=== PATIENT | male | born 1940 | race Caucasian/White ===

== ENCOUNTER 2018-04-15 16:52 | Inpatient (IN) ==
[2018-04-15 18:07] LABS: BASO# 0.07 X1000 (0.0-0.2); BASO% 1.4 % (0.0-0.8); EOS# 0.34 X1000 (0.0-0.7); EOS% 6.8 % (0.0-10.0); HEMATOCRIT 17.3 % (42.0-52.0); LYMPH# 1.62 X1000 (1.2-3.4); LYMPH% 32.2 % (20.5-51.1); MCH 18.1 PG (27-31); MCV 69.8 FL (81-99); MONO# 0.45 X1000 (0.11-0.59); MONO% 8.9 % (1.7-9.3); MPV 10.2 FL (7.4-10.4); NEUT# 2.55 X1000 (1.4-6.5); NEUT% 50.7 % (42.2-75.2); PLT 286 X1000 (130-400); RBC 2.48 XMIL (4.7-6.1); RDW 17.4 % (11.5-14.5); WBC 5.03 X1000 (4.8-10.8)
[2018-04-15 18:08] LABS: HEMOGLOBIN 4.5 g/dL (14.0-18.0)
[2018-04-15 18:09] LABS: AGAP 9; ALB/GLOB RATIO 1.6; ALBUMIN 3.9 g/dL (3.5-5.0); ALKALINE PHOSPHATASE 95 U/L (32-122); BUN 16 mg/dL (8-22); CALCIUM 8.2 mg/dL (8.8-10.2); CHLORIDE 102 mmol/L (98-107); COSMO 276; CREATININE 1.1 mg/dL (0.7-1.2); ESTIMATED GFR > 60; GLUCOSE 87 mg/dL (70-104); GOT 11 U/L (10-34); GPT 8 U/L (10-44); POTASSIUM 4.5 mmol/L (3.5-5.1); SODIUM 138 mmol/L (136-145); TCO2 27 mmol/L (25-35); TOTAL BILIRUBIN 0.17 mg/dL (0.20-1.00); TOTAL PROTEIN 6.3 g/dL (6.3-8.3)
--- NOTE | 2018-04-15 18:38 | Diag Imaging Result Doc PS360 ---
CHEST-2 VIEWS - 04/15/2018 INDICATION: fluid retention COMPARISON: 11/09/2015 FINDINGS: Stable COPD changes. No infiltrates or edema. No pneumothorax or pleural effusion. Heart size is normal. IMPRESSION: COPD. Electronically signed by Terrell Linton 04/15/2018 6:35 PM
[2018-04-15] MEDS ORDERED: ROCEPHIN 1 GM in NS 50 ML IV ONE (18:50)
[2018-04-15] MEDS ORDERED: PROTONIX IV ONE (18:50)
[2018-04-15] MEDS ORDERED: SODIUM CHLORIDE 0.9% INJ ONE (18:50)
--- NOTE | 2018-04-15 19:06 | PROVIDER DOCUMENTATION ---
This chart was entered by Miles Ramirez Scribe, acting as scribe for Stanislaw Dash MD. HPI-General Adult - General Source: family - History of Present Illness -Gen Adult Nature of Presenting Problems: Pt is a 77 y/o M brought to the ED by his daughter for right leg swelling. She reports pt has dementia, Epilepsy, COPD, Bipolar and emphysema. She is the one who gives the HPI. She noticed his right leg was swollen and warm 5 days ago and called his PCP friday. Pt saw her today and was sent to have a vascular study on lower extremities which the daughter was told was negative. She was sent to the ED for possible CHF. Daughter states she has seen some black stool X2. Once a week ago and then 1 month ago. Location of Pain/Injury: reports: lower extremity (right leg) Pain Radiation: reports: no radiation Quality of Pain: reports: aching Severity: reports: mild Onset/Duration: reports: 5 days ago Timing: reports: still present Context/Activities at Onset: reports: none Modifying Factors: improves with: nothing Associated Symptoms: reports: weakness, trouble walking. denies: cough, dizziness, fever/chills, sinus congestion/drainage, seizure, shortness of breath Similar Symptoms Previously?: No Recently seen or treated by another doctor?: No <Stanislaw Dash - Last Filed: 04/15/18 20:00> <Fay Meza - Last Filed: 04/15/18 20:03> - General Chief Complaint: Edema Stated Complaint: FLUID RETENTION Time Seen by Provider: 04/15/18 18:24 Allergies/Adverse Reactions: Patient Allergies Allergy/AdvReac Type Severity Reaction Status Date / Time Penicillins AdvReac HIVES Verified 04/15/18 19:53 Home Medications: Home Medication List Medication Instructions Recorded Confirmed Last Taken Type Lamotrigine 100 gm MC DAILY #30 powder 10/17/17 Unknown Rx Review of Systems - Adult - REVIEW OF SYSTEMS - ADULT ROS:: ROS per family Constitutional: denies: chills, fever Eyes: reports: no symptoms reported Ears, Nose, Mouth & Throat: reports: no symptoms reported Cardiovascular: reports: edema. denies: chest pain Respiratory: denies: cough, shortness of breath, wheezing Gastrointestinal: denies: abdominal pain, diarrhea, nausea, rectal bleeding, vomiting Genitourinary: denies: dysuria, discharge Musculoskeletal: denies: back pain, neck pain Integumentary: reports: no symptoms reported Neurological: denies: dizziness/vertigo, headache/migraines Psychiatric: reports: no symptoms reported Endocrine: reports: no symptoms reported Hematologic/Lymphatic: reports: no symptoms reported Allergic/Immunologic: reports: no symptoms reported All Other Systems: Reviewed and Negative <Stanislaw Dash - Last Filed: 04/15/18 20:00> Past History - Adult - PAST MEDICAL HISTORY-ADULT Review of Records: reports: Old Records Reviewed, Nursing Assessment Review, Medications Reviewed Cardiovascular: reports: HTN Neurological: reports: dementia Psychiatric: reports: bipolar - IMMUNIZATION STATUS Childhood Immunizations: See Nurse Assessment Flu Vaccine: See Nurse Assessment - SOCIAL HISTORY Smoking: cigarettes, greater than 1 pack/day Substance Use: none/never Living Situation: family <Stanislaw Dash - Last Filed: 04/15/18 20:00> Physical Exam-General - PHYSICAL EXAM-ADULT Initial Vital Signs Reviewed: Yes - CONSTITUTIONAL General Appearance: appears well, alert, no apparent distress - EYES Eyes: PERRL/EOMI, pink conjunctivae - HEAD, EARS, NOSE, MOUTH & THROAT HENMT: moist mucous membranes, normal ENT inspection, pharynx normal - NECK Neck: non-tender, full range of motion, supple - RESPIRATORY Respiratory: lungs clear, normal breath sounds, no pleuratic chest pain, no respiratory distress, no accessory muscle use - CARDIOVASCULAR Cardiovascular: normal peripheral pulses, regular rate, rhythm - GASTROINTESTINAL (ABDOMEN) Abdominal Exam: normal bowel sounds, soft - MUSCULOSKELETAL Back Exam: no CVA tenderness, no vertebral tenderness Extremity: normal range of motion, normal gait, normal inspection, pedal edema ( 2+), tenderness (right calf) - SKIN Integumentary: normal turgor, warm/dry, pallor. negative: normal color - NEUROLOGIC Neurologic: grossly normal, no motor/sensory deficits. negative: aphasia, facial droop - PSYCHIATRIC Psych/Mental Status: normal mood/affect, normal thought content, normal thought process, oriented x 3 <Stanislaw Dash - Last Filed: 04/15/18 20:00> Progress - PLAN OF CARE/RESULTS Progress/Plan/Lab Results: Vital Signs - 8 hr 04/15/18 17:01 Temperature 98.7 F Pulse Rate 74 Respiratory Rate 18 Blood Pressure 147/42 O2 Sat by Pulse Oximetry 100 Laboratory Results - last 24 hr 04/15/18 04/15/18 17:15 17:15 WBC 5.03 RBC 2.48 L Hgb 4.5 L* Hct 17.3 L MCV 69.8 L MCH 18.1 L MCHC 26.0 L RDW Std Deviation 17.4 H Plt Count 286 MPV 10.2 Immature Gran % (Auto) 0.0 Neut % (Auto) 50.7 Lymph % (Auto) 32.2 Ramsey % (Auto) 8.9 Eos % (Auto) 6.8 Baso % (Auto) 1.4 H Immature Gran # (Auto) 0.00 Neut # (Auto) 2.55 Lymph # (Auto) 1.62 Ramsey # (Auto) 0.45 Eos # (Auto) 0.34 Baso # (Auto) 0.07 Sodium 138 Potassium 4.5 Chloride 102 Carbon Dioxide 27 Anion Gap 9 BUN 16 Creatinine 1.1 Estimated GFR/1.73 m2 > 60 BUN/Creatinine Ratio 15 Glucose 87 Calculated Osmolality 276 Calcium 8.2 L Total Bilirubin 0.17 L AST 11 ALT 8 L Alkaline Phosphatase 95 Total Protein 6.3 Albumin 3.9 Globulin 2.4 Albumin/Globulin Ratio 1.6 Orders Category Date Time Status Saline Loc NOW Care 04/15/18 18:12 Active Transfuse .Give-Transfuse Care 04/15/18 18:13 Active CHEST-2 VIEWS [RAD] Stat Exams 04/15/18 17:10 Taken CBC WITH ELECTRONIC DIFF [HEME] Stat Lab 04/15/18 17:15 Completed COMPREHENSIVE METABOLIC PANEL [CHEM] Stat Lab 04/15/18 17:15 Completed MAGNESIUM [CHEM] Stat Lab 04/15/18 18:12 Uncollected PRBC [LRPC (RED CELLS)] [BBK] Stat Lab 04/15/18 18:13 Uncollected PRO B-NATRIURETIC PEPTIDE Stat Lab 04/15/18 17:15 Received PRO B-NATRIURETIC PEPTIDE Stat Lab 04/15/18 18:11 Uncollected PROTIME WITH INR [COAG] Stat Lab 04/15/18 18:11 Uncollected PTT [COAG] Stat Lab 04/15/18 18:11 Uncollected TROPONIN T Stat Lab 04/15/18 18:11 Uncollected TYPE & SCREEN [BBK] Stat Lab 04/15/18 18:12 Uncollected URINALYSIS W/POSS RFLX CULT [URINALYSIS] Stat Lab 04/15/18 18:11 Uncollected Oxygen Device Stat Oth 04/15/18 18:12 Active EKG [EKG] Stat Ther 04/15/18 17:10 Ordered Result Diagrams: 04/15/18 17:15 04/15/18 17:15 - REASSESSMENT Reassessment #1 Time Reassessed: 19:53 Status: unchanged (Reasessement complete by Dr Meza. Rectal exam completed. nontender, no blood noted) - XRAY 1 XRAY Study: Chest Impression: Abnormal ( INDICATION: fluid retention COMPARISON: 11/09/2015 FINDINGS: Stable COPD changes. No infiltrates or edema. No pneumothorax or pleural effusion. Heart size is normal. IMPRESSION: COPD. Electronically signed by Terrell Linton 04/15/2018 6:35 PM) - CONSULTS/PCP/HOSPITALIST Notification #1 *Consult/PCP/Hospitalist*: Hospitalist- Dr South Time Discussed: 19:59 Reason/Comments: Review HPI and Admission Consult Disposition: Admit (accepts) - CHANGE OF SHIFT REPORT (ED Provider) Report Given and Care Transferred to:: Dr Meza Time of Transfer: 19:01 Items Pending: Labs, CT/MRI Results <Stanislaw Dash - Last Filed: 04/15/18 20:00> - PLAN OF CARE/RESULTS Progress/Plan/Lab Results: Vital Signs - 8 hr 04/15/18 17:01 04/15/18 18:33 04/15/18 18:34 Temperature 98.7 F Pulse Rate 74 83 80 Respiratory Rate 18 16 14 Blood Pressure 147/42 167/80 O2 Sat by Pulse Oximetry 100 04/15/18 18:40 04/15/18 18:50 04/15/18 19:00 Temperature Pulse Rate 80 76 80 Respiratory Rate 19 12 16 Blood Pressure O2 Sat by Pulse Oximetry 99 100 98 Laboratory Results - last 24 hr 04/15/18 04/15/18 04/15/18 17:15 17:15 17:15 WBC 5.03 RBC 2.48 L Hgb 4.5 L* Hct 17.3 L MCV 69.8 L MCH 18.1 L MCHC 26.0 L RDW Std Deviation 17.4 H Plt Count 286 MPV 10.2 Immature Gran % (Auto) 0.0 Neut % (Auto) 50.7 Lymph % (Auto) 32.2 Ramsey % (Auto) 8.9 Eos % (Auto) 6.8 Baso % (Auto) 1.4 H Immature Gran # (Auto) 0.00 Neut # (Auto) 2.55 Lymph # (Auto) 1.62 Ramsey # (Auto) 0.45 Eos # (Auto) 0.34 Baso # (Auto) 0.07 PT INR PTT (Actin FS) Sodium 138 Potassium 4.5 Chloride 102 Carbon Dioxide 27 Anion Gap 9 BUN 16 Creatinine 1.1 Estimated GFR/1.73 m2 > 60 BUN/Creatinine Ratio 15 Glucose 87 Calculated Osmolality 276 Calcium 8.2 L Magnesium Total Bilirubin 0.17 L AST 11 ALT 8 L Alkaline Phosphatase 95 Troponin T Ich-R-Soxpoxaksmj Pept 1349 H Total Protein 6.3 Albumin 3.9 Globulin 2.4 Albumin/Globulin Ratio 1.6 Blood Type Blood Type Confirm Antibody Screen Crossmatch 04/15/18 04/15/18 04/15/18 17:15 17:15 17:15 WBC RBC Hgb Hct MCV MCH MCHC RDW Std Deviation Plt Count MPV Immature Gran % (Auto) Neut % (Auto) Lymph % (Auto) Ramsey % (Auto) Eos % (Auto) Baso % (Auto) Immature Gran # (Auto) Neut # (Auto) Lymph # (Auto) Ramsey # (Auto) Eos # (Auto) Baso # (Auto) PT 15.1 INR 1.10 PTT (Actin FS) 35.9 Sodium Potassium Chloride Carbon Dioxide Anion Gap BUN Creatinine Estimated GFR/1.73 m2 BUN/Creatinine Ratio Glucose Calculated Osmolality Calcium Magnesium 2.2 Total Bilirubin AST ALT Alkaline Phosphatase Troponin T < 0.010 Snx-S-Nkyfcnbhnqs Pept Total Protein Albumin Globulin Albumin/Globulin Ratio Blood Type Blood Type Confirm Antibody Screen Crossmatch 04/15/18 04/15/18 17:15 18:45 WBC RBC Hgb Hct MCV MCH MCHC RDW Std Deviation Plt Count MPV Immature Gran % (Auto) Neut % (Auto) Lymph % (Auto) Ramsey % (Auto) Eos % (Auto) Baso % (Auto) Immature Gran # (Auto) Neut # (Auto) Lymph # (Auto) Ramsey # (Auto) Eos # (Auto) Baso # (Auto) PT INR PTT (Actin FS) Sodium Potassium Chloride Carbon Dioxide Anion Gap BUN Creatinine Estimated GFR/1.73 m2 BUN/Creatinine Ratio Glucose Calculated Osmolality Calcium Magnesium Total Bilirubin AST ALT Alkaline Phosphatase Troponin T Wkr-X-Vvbjfbqcctu Pept Total Protein Albumin Globulin Albumin/Globulin Ratio Blood Type B POSITIVE Blood Type Confirm B POSITIVE Antibody Screen NEGATIVE Crossmatch See Detail Orders Category Date Time Status Saline Loc NOW Care 04/15/18 18:12 Active Transfuse .Give-Transfuse Care 04/15/18 18:13 Active CHEST-2 VIEWS [RAD] Stat Exams 04/15/18 17:10 Completed CBC WITH ELECTRONIC DIFF [HEME] Stat Lab 04/15/18 17:15 Completed COMPREHENSIVE METABOLIC PANEL [CHEM] Stat Lab 04/15/18 17:15 Completed FERRITIN Stat Lab 04/15/18 19:47 Ordered Iron [TOTAL IRON] [CHEM] Stat Lab 04/15/18 19:47 Uncollected MAGNESIUM [CHEM] Stat Lab 04/15/18 17:15 Received PRBC [LRPC (RED CELLS)] [BBK] Stat Lab 04/15/18 18:45 Results PRO B-NATRIURETIC PEPTIDE Stat Lab 04/15/18 17:15 Completed PROTIME WITH INR [COAG] Stat Lab 04/15/18 17:15 Completed PTT [COAG] Stat Lab 04/15/18 17:15 Completed TIBC [UIBC W TOTAL IRON] [CHEM] Stat Lab 04/15/18 19:47 Uncollected TROPONIN T Stat Lab 04/15/18 17:15 Received TYPE & SCREEN [BBK] Stat Lab 04/15/18 18:45 Results URINALYSIS W/POSS RFLX CULT [URINALYSIS] Stat Lab 04/15/18 18:11 Uncollected CefTRIAXONE [Rocephin] 1 gm Med 04/15/18 18:50 Discontinued 0.9% Sodium Chloride Inj [Ns] 50 ml IV NOW Pantoprazole [Protonix] Med 04/15/18 18:50 Discontinued 40 mg IV NOW ONE Sodium Chloride 0.9% Med 04/15/18 18:50 Discontinued 10 ml INJ NOW ONE Oxygen Device Stat Oth 04/15/18 18:12 Active EKG [EKG] Stat Ther 04/15/18 17:10 Ordered Result Diagrams: 04/15/18 17:15 04/15/18 17:15 <Fay Meza - Last Filed: 04/15/18 20:03> Departure - Departure Date of Disposition Decision: 04/15/18 Time of Disposition Decision: 20:00 Certified Medical Emergency: Emergent - Critical Care Note This patient required my direct & personal management of CC.: No <Stanislaw Dash - Last Filed: 04/15/18 20:00> <Fay Meza - Last Filed: 04/15/18 20:03> - Departure DIAGNOSIS: Hypochromic anemia, Microcytic hypochromic anemia Disposition: ADMITTED INPATIENT 09 Referrals and Follow-Ups: Rosemary Ly MD [Primary Care Provider] - Attestation - Physician/ ELMER Attestation Patient care was provided by Advanced Practice Provider:: No The physician spent face to face time with patient:: Yes Advanced Practice Provider documentation review:: Supervising physician onsite and consulted in the evaluation and care of this patient. The physician did have a face to face encounter with the patient. <Stanislaw Dash - Last Filed: 04/15/18 20:00> This chart was documented by the indicated scribe, (Miles Ramirez Scribe) and accurately reflects the services I performed and decisions made by me, Stanislaw Dash MD, as attested by the provider's signature.
[2018-04-15 19:43] LABS: INR 1.1; PROTIME 15.1 Seconds (11.0-16.0)
[2018-04-15 19:44] LABS: PTT 35.9 Seconds (22.3-41.8)
[2018-04-15 21:16] LABS: IRON SATURATION 2 %; TIBC 359 ug/dL
[2018-04-15 21:17] LABS: URINE SOURCE CLEAN CATCH
[2018-04-15 21:21] LABS: TOTAL IRON 7 ug/dL (53-167); UNBOUND IRON 352 ug/dL (112-346)
[2018-04-15 21:25] LABS: BILIRUBIN URINE NEGATIVE (NEGATIVE); BLOOD URINE NEGATIVE (NEGATIVE); COLOR YELLOW; GLUCOSE URINE NEGATIVE (NEGATIVE); KETONE URINE NEGATIVE (NEGATIVE); LEUKOCYTES URINE NEGATIVE (NEGATIVE); NITRITE URINE NEGATIVE (NEGATIVE); PROTEIN URINE NEGATIVE (NEGATIVE); SP GRAVITY URINE 1.007; TURBIDITY URINE CLEAR (CLEAR); UROBILINOGEN URINE NORMAL (NORMAL)
[2018-04-15 21:26] LABS: UR EPITHELIAL CELLS <10 /HPF (<10); URINE BACTERIA NEGATIVE /HPF; URINE RBC <10 /HPF (<10); URINE WBC <10 /HPF (<10)
[2018-04-15] MEDS ORDERED: SODIUM CHLORIDE 0.9% INJ SCH (23:30)
[2018-04-15] MEDS ORDERED: ZOFRAN IV PRN (23:42)
[2018-04-15] MEDS ORDERED: NS 1,000 ML IV SCH (23:45)
[2018-04-16 01:14] LABS: HEMATOCRIT 21.7 % (42.0-52.0)
[2018-04-16] MEDS ORDERED: FLU VACCINE IM ONE (02:38)
[2018-04-16 06:45] LABS: BASO# 0.07 X1000 (0.0-0.2); BASO% 1.2 % (0.0-0.8); EOS# 0.36 X1000 (0.0-0.7); EOS% 6.3 % (0.0-10.0); HEMATOCRIT 22.8 % (42.0-52.0); HEMOGLOBIN 6.4 g/dL (14.0-18.0); IMM GRAN# 0.02 X1000 (0.0-0.04); IMM GRAN% 0.4 % (0.0-0.5); LYMPH# 1.28 X1000 (1.2-3.4); LYMPH% 22.5 % (20.5-51.1); MCH 20.5 PG (27-31); MCHC 28.1 g/dL (33-37); MCV 73.1 FL (81-99); MONO# 0.66 X1000 (0.11-0.59); MONO% 11.6 % (1.7-9.3); NEUT# 3.31 X1000 (1.4-6.5); PLT 283 X1000 (130-400); RBC 3.12 XMIL (4.7-6.1); RDW 18.9 % (11.5-14.5)
[2018-04-16 07:11] LABS: AGAP 9; BUN 13 mg/dL (8-22); CALCIUM 8.5 mg/dL (8.8-10.2); CHLORIDE 107 mmol/L (98-107); COSMO 285; ESTIMATED GFR > 60; GLUCOSE 93 mg/dL (70-104); POTASSIUM 4.1 mmol/L (3.5-5.1); SODIUM 143 mmol/L (136-145); TCO2 27 mmol/L (25-35)
[2018-04-16] MEDS: DUONEB (A & A) INH PRN ×2 (07:52→15:36)
--- NOTE | 2018-04-16 08:26 | EKG Report ---
Test Performed on : 04/15/2018 5:02:41 PM Test Reason : fluid retention Blood Pressure : / mmHG Vent. Rate : 074 BPM Atrial Rate : 074 BPM P-R Int : 192 ms QRS Dur : 090 ms QT Int : 380 ms P-R-T Axes : 094 056 057 degrees QTc Int : 421 ms Normal sinus rhythm. Septal infarct , age undetermined Abnormal ECG No previous ECGs available Unconfirmed Result
[2018-04-16] MEDS: LAMICTAL PO SCH ×2 (08:48→17:45)
--- NOTE | 2018-04-16 08:51 | HISTORY AND PHYSICAL ---
PRIMARY CARE PROVIDER: Dr. Ly. CHIEF COMPLAINT: Edema. HISTORY OF PRESENT ILLNESS: Mr. Valdez is a 77-year-old male with a past medical history most notable for hypertension, hyperlipidemia, bipolar disorder, seizures, and dementia. The patient's daughter states that over the past few weeks now that she has noticed her father has had worsening fatigue and weakness. She also reports that he has had worsening unsteady gait. She states that over the weekend, he has had some worsening memory problems and confusion. She reported that approximately a week ago, she did notice some black stool on the toilet. She also reports that her father has been complaining of epigastric pain and quite a bit of indigestion. She has been giving him [id number] antacids. He does take a daily aspirin as well as she states that she will occasionally give him an Aleve for pain. She states that she has given him Aleve approximately 3-4 times over the past two weeks. They ultimately did present to the hospital today when instructed by Dr. Ly. He placed an outpatient order for a right venous Doppler ultrasound. She states that over the weekend, he did have some swelling in her right lower extremity. She states that this extremity was warm to the touch compared to his other leg and did have some erythema noted. She reports that she did put some compression socks on him over the weekend and the swelling did improve, though was still present on Friday. They did have an appointment with Dr. Ly today and there was concern for a possible DVT. He did present to the hospital today and did have a venous Doppler ultrasound performed which was reportedly negative, though due to the swelling and some of the symptoms that she had reported to the senior wind turbine technician, the senior wind turbine technician did contact Dr. Ly and was concerned that he may need to come to the ER for further evaluation. The patient is alert and oriented to person and place, though not time. Most of my history of present illness and past medical history were provided by the patient's daughter who is his full-time caregiver. She denies him having any headache or dizziness. She denies him having any known cough, shortness of breath, or chest pain. As previously mentioned, the patient has been reporting epigastric pain and indigestion, though has not had any nausea, vomiting or diarrhea. Other than the swelling in his right lower extremity, he had no other pain, numbness, tingling, or swelling in other extremities. Upon evaluation in the ER, the patient's laboratory results did reveal that he had a critical hemoglobin of 4.5 and a hematocrit of 17.3. His Hemoccult stool that was obtained was negative. I did perform a chest x-ray which showed findings of COPD changes though no infiltrates or edema and no pneumothorax or pleural effusion noted. The patient's vital signs are within normal limits. Blood pressure is 153/79, heart rate 71, oxygen saturation 98% on room air. The patient at this time will be admitted inpatient for further evaluation of his symptomatic anemia as well as possible GI bleed. REVIEW OF SYSTEMS: Unfortunately, a review of systems is unable to be performed with the patient due to his current mentation. He does have a history of dementia though please see the above HPI for a list of reported symptoms by his daughter who is his full-time caregiver. PAST MEDICAL HISTORY: 1. Hypertension. 2. Bipolar disorder. 3. Seizures. 4. Dementia. 5. Hyperlipidemia. 6. Carotid stenosis. 7. BPH. PAST SURGICAL HISTORY: Shoulder surgery. SOCIAL HISTORY: The patient does smoke 1-1/2 packs of cigarettes per day. There is no known alcohol or illicit drug use. He does require assistance of a cane for ambulation. He is retired from [employer]. He does live with his daughter who is his full-time caregiver. FAMILY HISTORY: Positive for his mother having Alzheimer's disease and hyperlipidemia. His father has a history of heart disease, hypertension, and hyperlipidemia. ALLERGIES: The patient has allergies to penicillin. HOME MEDICATIONS: 1. Aspirin 81 mg p.o. with supper. 2. Benazepril 10 mg 1 tablet p.o. daily. 3. Lamictal 100 mg p.o. at breakfast. 4. Lamictal 200 mg p.o. with supper. 5. [place]-3 fatty acid/fish oil 1000 mg 1 p.o. daily. 6. Sertraline 100 mg p.o. daily. 7. Simvastatin 40 mg p.o. with supper. 8. Flomax 0.4 mg p.o. with supper. 9. Omeprazole 40 mg p.o. daily. 10.Albuterol inhaler p.r.n. as needed. DIAGNOSTIC DATA/LABORATORY RESULTS: White blood cell count 5030, hemoglobin 4.5, hematocrit 17.3, platelet count 286. PT 15.1, INR 1.1, PTT 35.9. Sodium 138, potassium 4.5, chloride 102, serum bicarb 27, BUN 16, creatinine 1.1, glucose 87, calcium 8.2, magnesium 2.2. Liver function tests are within normal limits. Troponin is less than 0.01. ProBNP 1349. Urinalysis obtained via clean catch was negative for protein, glucose, ketones, blood, nitrites, leukocytes, white blood cells or bacteria. EKG performed showed normal sinus rhythm at a rate of 74 with a QTC of 421. Chest x-ray showed stable COPD changes. There were no infiltrates, edema, pneumothorax, or pleural effusion identified. PHYSICAL EXAMINATION: VITAL SIGNS: Temperature 98.2, heart rate 75, respirations 18, blood pressure 144/84, oxygen saturation 96% on room air. GENERAL: Mr. Valdez is a pleasant, 77-year-old elderly male who was resting on the ER stretcher. He is in no acute distress. He was awake and alert though was only oriented to person and place. The patient does have a history of dementia. He was able to recognize his daughter at the bedside. He is able to follow simple commands. HEENT: Head is atraumatic, normocephalic. Pupils are 2 mm bilaterally, were equal, round and reactive to light. Subconjunctivae are pale. Oral mucosa is moist. Oropharynx clear. NECK: Supple. Trachea midline. The patient did have bilateral carotid bruits. This was louder on the left compared to the right. He does have a history of carotid stenosis which his daughter states they have been monitoring but does not require intervention at this time. CARDIOVASCULAR: The patient has S1 and S2. No murmurs, gallops or rubs appreciated. Regular rate and rhythm. PULMONARY: The patient has symmetrical chest expansion bilaterally. Lungs sounds were clear to auscultation in bilateral full pelaez. ABDOMEN: Soft. Nondistended. The patient did report some pain and tenderness in the epigastric area. Bowel sounds were present in all four quadrants. EXTREMITIES: No cyanosis noted. The patient did have some swelling noted to his right lower extremity though this is mild. There was no pitting edema. This is from approximately mid calf down. Pulse, motor and sensory were intact in all extremities. Radial pulses and pedal pulses were 2+ bilaterally. Capillary refill is less than 3. There is no increased warmth noted in the right lower extremity though there does appear to be some slight erythema when compared to his left. INTEGUMENTARY: The patient's skin is pink, warm and dry. NEUROLOGIC: The patient is alert and oriented to person and place only. He does have a history of dementia though his daughter states at this time that he is slightly worse than his baseline. He is able to move all extremities. There does not appear to be any focal neurologic deficits. He does have generalized weakness noted. ASSESSMENT AND PLAN: 1. Symptomatic anemia. Further evaluation of this. Anemia profile has been ordered. I have ordered for the patient to be transfused with 2 units of red blood cells. Once this is completed, we will redraw hemoglobin, hematocrit, and transfuse again if necessary. The patient has had reported increased weakness and fatigue. His daughter states he is having a lot more difficulty with ambulation at this time. This is likely secondary to his anemia though if this does not improve after treatment of his anemia, the patient may require physical therapy evaluation. We have placed a consult with Gastroenterology and will await their evaluation and further recommendations for management. 2. Possible gastrointestinal bleed. The patient has reported epigastric pain and worsening indigestion as well as his daughter did state that he had had some melena. His Hemoccult stool initially obtained in the ER was negative. We have reordered this for recheck. The patient is hemodynamically at this time. We will do continuous cardiac telemetry and frequent vital signs for close monitoring. Will continue with treatment as mentioned above for #1. The patient will have Protonix 40 mg IV q.12 hours. He will be n.p.o. at this time. 3. History of seizures. Will continue his Lamictal. 4. History of bipolar disorder. Will continue his Lamictal. 5. History of dementia. 6. History of hypertension. At this time, the patient's blood pressure is within normal limits and given that he is her for symptomatic anemia and possible gastrointestinal bleed, will hold antihypertensives at this time and only treat if necessary. 7. Deep venous thrombosis prophylaxis will be provided with sequential compression devices. The patient has been placed on the medical floor with telemetry. He will have vital signs q.4 hours and do strict intake and output. We will repeat a CBC and BMP in the morning. Other orders and recommendations pending hospital course, diagnostic studies, and physician evaluation. Dictated by MARIAA Magdaleno for Harry South MD cc: Harry South MD
[2018-04-16] MEDS ORDERED: PROTONIX IV SCH (09:00)
[2018-04-16 12:19] LABS: HEMATOCRIT 24.5 % (42.0-52.0)
[2018-04-16] MEDS ORDERED: DIPRIVAN 1% ONE (12:46)
[2018-04-16] MEDS ORDERED: FERRLECIT 125 MG in NS 100 ML IV ONE (14:39)
--- NOTE | 2018-04-16 15:30 | CONSULTATION ---
DATE OF CONSULTATION: 04/16/2018 REASON FOR CONSULTATION: Severe anemia. HISTORY OF PRESENT ILLNESS: This is a 77-year-old white male who comes in with recent problems of right leg swelling. He had been seen by Dr. Ly. They had done workup for possible DVT, which daughter reports was negative. On evaluation, he was found to be severely anemic and he was admitted for further evaluation. The daughter, who lives with him and is his caregiver, due to his dementia, states onset of symptoms started on Friday. He had some swelling in the right lower extremity that was warm to touch. She had also noted a black stool. She had given him some Aleve several times over the last week. There was no noted bright red blood in the stool. No noted hematuria. She had also noticed some unsteady gait. He had reported shortness of breath and some chest pain, reflux/heartburn. He takes Prilosec 40 mg daily and she had been giving additional [id number] Pepcid. The patient had denied abdominal pain. Daughter denies any reported constipation or diarrhea. He usually has a bowel movement daily. He has had a colonoscopy in the past, per our records, his last colonoscopy was in 2011 that showed colon polyps. PAST MEDICAL HISTORY: Hypertension, bipolar disorder, history of epilepsy, dementia, hyperlipidemia, history of carotid stenosis, BPH. PAST SURGICAL HISTORY: Shoulder surgery. ALLERGIES: Penicillin causing hives. HOME MEDICATIONS: Aspirin 81 mg daily, Aricept 10 mg daily, lamotrigine 200 mg every night and 100 mg daily, Namzaric 28/10 mg, 28 mg with breakfast, fish oil one daily, sertraline 100 mg daily, simvastatin 40 mg every night, Flomax 0.4 mg every night. SOCIAL HISTORY: Positive for tobacco use, one and a half packs of cigarettes daily. Denies alcohol use. He is a . He lives with his daughter. FAMILY HISTORY: Positive for Alzheimer's disease in his mother and hyperlipidemia. Father with heart disease, hypertension, and hyperlipidemia. VITAL SIGNS: Temperature 97.9, pulse 79, respirations 18, blood pressure 154/ 62. PHYSICAL EXAMINATION: General: The patient is awake and in no acute distress. He is able to help with some review of systems, most of the information is obtained from the daughter. HEENT: Normocephalic and atraumatic. Pupils equal, round, and reactive to light. Sclerae are nonicteric. Conjunctivae pale. Respiratory: Lung sounds essentially clear bilaterally. Cardiovascular: Regular rate and rhythm. Abdomen: Soft. Nontender. Positive bowel sounds. Extremities: The patient apparently had some right lower extremity edema, I do not really notice much of that now. He does have some tenderness to touch to the lower extremities, otherwise pedal pulses present bilaterally. Neurological: Cranial nerves II-XII grossly intact. The patient is awake and alert and oriented. He does have a history of dementia but he is able to assist with some of the questions. LABORATORY DATA: Hematology: WBC 5.70, hemoglobin 6.4, hematocrit 22.8. On admission, his hemoglobin was 4.5, hematocrit 17.3, MCV 73.1, platelets 283. Coagulation: Pro time 15.1, INR 1.10, PTT 35.9. Chemistries: Sodium 143, potassium 4.1, chloride 107, CO2 27, BUN 13, creatinine 1.1, glucose 93, calcium 8.5. Iron 7. TIBC 359. % saturation 2. Ferritin 5. Total bilirubin 0.17. AST 11 and ALT 8. Alkaline phosphatase 95. Urinalysis is negative. IMAGING STUDIES: Chest x-ray shows COPD. ASSESSMENT AND PLAN: 1. Severe anemia. The patient has received three units of packed red blood cells. He has one more unit to receive. 2. Questionable gastrointestinal bleed. The patient has had noted melena plus he has been taking NSAIDs in addition to his 81 mg aspirin. Continue proton pump inhibitor. Monitor for active bleeding and monitor hemoglobin and hematocrit. Transfuse further packed red blood cells as needed. Will plan for an esophagogastroduodenoscopy today and further plans will be made according to findings. 3. Medical problems including history of seizures, bipolar disorder, dementia, hypertension, and hyperlipidemia. Continue other medications. I have discussed the EGD procedure along with benefits and risks with the patient and his daughter. I have discussed this case with Dr. Cole and further plans will be made as needed. Thank you for this consultation. Dictated by MARIAA Stauffer for Pee Cole MD cc: MARIAA Padilla MD [facility]
--- NOTE | 2018-04-16 15:34 | PROGRESS NOTE ---
DATE: 04/16/2018 INTERVAL HISTORY: The patient with no clear signs or symptoms of active bleeding. Some improvement in hemoglobin and hematocrit with transfusion of 3 units but remains fairly low. Transfusing an additional unit. Given heavy NSAID use prior to admission and melenic stools prior to admission, suspect upper GI bleed. GI evaluation for likely endoscopy pending. Reports fatigue and weakness somewhat improved with transfusion. No new complaints. No other acute events overnight. REVIEW OF SYSTEM: The 12-point review of systems negative except as per interval history. LABORATORY DATA: Initial hemoglobin 4.5. Repeat hemoglobin 6. Most recent hemoglobin 7. Basic metabolic panel unremarkable. Urinalysis unremarkable. The proBNP 1349, iron 7 , TIBC 359, percent saturation 100%, iron saturation 2, ferritin 5. OBJECTIVE: Vital Signs: T-max 98.3 degrees, pulse 75, respirations 18, blood pressure 161/68, O2 saturation 100% on room air. General: No acute distress. HEENT: Normocephalic, atraumatic. Moist mucous membranes. No cervical adenopathy. Some pallor noted. Cardiovascular: Regular rate and rhythm. No murmurs, rubs, or gallops. Pulmonary: Clear to auscultation bilaterally. No wheezing, rales, or rhonchi noted. Abdomen: Soft, nondistended. Minimal epigastric tenderness. Bowel sounds positive. Extremities: Peripheral pulses intact. No clubbing or cyanosis. Trace right lower extremity edema to the mid chapa. Neurologic: Cranial nerves 2-12 grossly intact. No focal deficits noted. Psychiatric: Oriented to person, place but not time, which is essentially baseline. Normal mood and affect. Skin: Some pallor noted as above. No new rashes or lesions identified. ASSESSMENT AND PLAN: 1. Likely zckcz-[id number] blood-loss anemia from gastrointestinal bleed: Patient with profound anemia on admission with hemoglobin of 4.5. Transfused 3 units with improvement to 6.4. Transfused an additional unit. Most recent recheck 7. Given melenotic stools prior to admission, suspect upper GI bleed. GI consultation and recommendations pending. The patient on PPI. Continue to monitor blood counts and transfuse further as needed. The patient quite iron deficient, so we will start IV iron. 2. Seizure disorder. Continue on Lamictal. 3. History of bipolar disorder. Continue home medications. 4. Dementia, moderate. Cooperative and conversation largely appropriate. 5. Hypertension. Some moderate elevations in blood pressure intermittently, but given mild hypotension on admission and possible bleeding, we will hold on restarting home blood pressure medications for now. 6. Deep vein thrombosis prophylaxis with SCDs. 7. Elevated B-type natriuretic peptide. No previous history of heart failure noted. No clear signs of volume overload aside from trace edema of the right lower leg. We will obtain echo to further evaluate. [facility]
--- NOTE | 2018-04-16 16:04 | OPERATIVE NOTE ---
PROCEDURE DATE: 04/16/2018 PROCEDURE: Esophagogastroduodenoscopy. PREOPERATIVE DIAGNOSES: 1. Gastrointestinal bleed. 2. Anemia. POSTOPERATIVE DIAGNOSIS: Diverticulosis second portion of the duodenum. Otherwise, normal esophagogastroduodenoscopy. HISTORY: This is 77-year-old white male admitted to hospital with symptomatic anemia. His hemoglobin and hematocrit were 4.5 and 17.3. EGD was done for diagnostic, as well as therapeutic purposes. DESCRIPTION OF PROCEDURE: Informed consent obtained from the patient's daughter. Procedure, risks, benefits, alternatives were explained in layman's terms. She understood and agreed to proceed. Patient was brought to the endoscopy unit and was premedicated as per Anesthesia. After adequate sedation was achieved, he was lying in the left lateral position. The gastroscope was introduced into the posterior pharynx and advanced under direct vision into the esophagus. Esophagus in its entire length appeared to be normal. No esophagitis, webs, rings, varices were seen. The scope was passed through the esophagus into the stomach. Stomach was examined in both the straight and retroflexed view, which revealed normal cardia, fundus, body, and antrum. The scope was passed through the normal pylorus, into the duodenal bulb, which was normal. Then it was advanced to the second portion of the duodenum which showed a large wide-mouth diverticula on the medial aspect of the duodenum. No evidence of active bleeding or stigmata of recent bleed seen there. I was able to advance the scope into the distal portion of the second portion of duodenum, which did not show any pathology either. The scope was then removed. Patient tolerated the procedure well. No complications noted. Patient was then transferred to the recovery area in a stable condition. IMPRESSION: Anemia with normal esophagogastroduodenoscopy, except for duodenal diverticula. RECOMMENDATION: The patient has received transfusion, and his hemoglobin and hematocrit have improved. I would follow him up at the office and see if he can maintain his hemoglobin and hematocrit on iron oral supplements, and discuss possibility of colonoscopy or small bowel follow- through if needed if he shows further drop in his hemoglobin and hematocrit requiring blood transfusions. I have discussed the findings and plan with the patient's daughter on the telephone. She understands and agrees. cc: MD Rosemary Gutierrez MD
[2018-04-16 21:11] LABS: HEMOGLOBIN 7.4 g/dL (14.0-18.0)
[2018-04-17] MEDS: PRILOSEC PO SCH (06:51)
[2018-04-17] MEDS: LAMICTAL PO SCH ×2 (09:29→17:36)
[2018-04-17] MEDS: DUONEB (A & A) INH PRN ×3 (09:51→20:00)
[2018-04-17 10:29] LABS: HEMATOCRIT 25.7 % (42.0-52.0); HEMOGLOBIN 7.4 g/dL (14.0-18.0)
--- NOTE | 2018-04-17 13:15 | PROGRESS NOTE ---
DATE: 04/17/2018 SUBJECTIVE: The patient was lying in bed in no acute distress. Family was at the bedside. The patient had an EGD on 04/16/2018. Indications for anemia. Findings showed normal EGD except for duodenal diverticula. The patient has not had any active GI bleeding. His hemoglobin and hematocrit today are 7.4, and 25.7. The patient has received a total of 4 units of packed red blood cells since admission. OBJECTIVE: Vital Signs: Temperature 97.8 degrees, pulse 86, respirations 17, blood pressure 125/55. General: The patient is awake and alert, in no acute distress. DIAGNOSTIC DATA: Hemoglobin 7.4, hematocrit 25.7. ASSESSMENT AND PLAN: 1. Anemia, with essentially normal EGD except for duodenal diverticula. Continue PPI. Continue iron. We will plan for a colonoscopy on Friday. 2. Other medical problems including bipolar disorder, dementia, hypertension, history of seizure disorder. Continue current medications. 3. We will plan for colonoscopy on Friday. I have discussed the procedure along with benefits and risks with the patient and family who wish to proceed. We will use a low-dose colon prep. Due to patient's dementia, I do not believe he would tolerate drinking the whole gallon prep. Further plans will be made according to findings. Continue to follow for any further active bleeding, monitor hemoglobin and hematocrit, and transfuse further packed red blood cells as needed. I have discussed this case with Dr. Cole. Dictated by MARIAA Stauffer for Pee Cole MD cc: MARIAA Padilla MD
--- NOTE | 2018-04-17 13:50 | PROGRESS NOTE ---
DATE: 04/17/2018 SUBJECTIVE: The patient is resting in bed. Family present in the room. OBJECTIVE: Vital signs: Temperature 97.8 degrees, pulse 86, respiratory rate 17, blood pressure is 125/55, oxygenation is 100%. HEENT: Atraumatic, normocephalic. Cardiovascular: S1, S2. Respiratory system: Good air entry bilaterally. Abdomen: Soft, nontender. No masses felt. Extremities: No evidence of significant edema. Central nervous system: The patient is lethargic. No obvious focal deficits noted. LABS: Hematocrit is 25.7, with a hemoglobin of 7.4. Blood sugar is 83. EGD done on 04/16/2018 showed normal EGD except for duodenal diverticula. ASSESSMENT AND PLAN: 1. Profound anemia, query etiology. Suspect GI bleed. EGD not very revealing. We will recommend proceeding with lower GI endoscopic studies. In the meanwhile we will continue to follow up on the patient's hemoglobin and hematocrit. Transfuse packed red blood cells as needed. 2. Seizure disorder. Continue Lamictal. Place the patient on seizure precaution. 3. Dementia. Continue Namenda as well as Aricept. 4. History of bipolar disorder. Continue appropriate psych med. 5. Hypertension. Controlled. The patient currently is not on any antihypertensive medications. 6. Deep vein thrombosis prophylaxis. SCDs. cc: Yusuf Patel MD
[2018-04-17] MEDS: ICAR-C PO SCH (13:53)
[2018-04-17] MEDS ORDERED: NS 250 ML ONE (14:19)
--- NOTE | 2018-04-17 15:49 | ECHO REPORT ---
ORDER DATE: 04/16/2018 SUMMARY: 1. Limited study consisting of apical views only. There were no adequate parasternal or subcostal views. Available apical views are technically difficult for interpretation. Intravenous echo contrast agent, Definity, was utilized to enhance endocardial definition. 2. Aortic mitral and tricuspid valves are without gross structural abnormality. Pulmonic valve not seen. Peak gradient across the aortic valve is approximately 10 mmHg. Aortic root is not well demonstrated. 3. Grossly normal left ventricular dimensions suggested. Estimated left ejection fraction appears to be at least 60%. No obvious wall motion abnormality can be appreciated. Left atrium, right atrium, right ventricle grossly normal size. 4. No pericardial effusion. 5. Inferior vena cava not well demonstrated. cc: Ranjeet Villalpando MD
[2018-04-18] MEDS: PRILOSEC PO SCH (06:37)
[2018-04-18] MEDS ORDERED: ARICEPT PO SCH (08:00)
[2018-04-18] MEDS: ICAR-C PO SCH (09:37)
[2018-04-18] MEDS: LAMICTAL PO SCH ×2 (09:37→17:29)
[2018-04-18] MEDS: ARICEPT PO SCH (09:37)
[2018-04-18] MEDS: NAMENDA XR PO SCH (09:37)
[2018-04-18 10:49] LABS: BASO# 0.04 X1000 (0.0-0.2); BASO% 0.5 % (0.0-0.8); HEMATOCRIT 30.4 % (42.0-52.0); HEMOGLOBIN 9.1 g/dL (14.0-18.0); LYMPH# 1.06 X1000 (1.2-3.4); LYMPH% 14.1 % (20.5-51.1); MCH 22.8 PG (27-31); MCHC 29.9 g/dL (33-37); MCV 76.2 FL (81-99); MONO# 0.78 X1000 (0.11-0.59); MONO% 10.4 % (1.7-9.3); MPV 10.7 FL (7.4-10.4); NEUT# 5.35 X1000 (1.4-6.5); PLT 256 X1000 (130-400); RBC 3.99 XMIL (4.7-6.1); RDW 21.9 % (11.5-14.5); WBC 7.53 X1000 (4.8-10.8)
--- NOTE | 2018-04-18 12:22 | PROGRESS NOTE ---
DATE: 04/18/2018 INTERVAL HISTORY: The patient had no further clear signs of active bleeding. Continues to have waxing and waning mental status, but overall some improvement from admission. No new complaints. No acute events overnight. REVIEW OF SYSTEMS: A 12 point review of systems is negative except as per interval history. LABS: WBC 7.5, hemoglobin 9.1, hematocrit 30.4, platelets 256,000. Glucose 95. PHYSICAL EXAMINATION: Vitals: T-max 99.3 degrees, pulse 79, respirations 14, blood pressure 163/66, O2 saturation 96% on room air. General: No acute distress. HEENT: Normocephalic, atraumatic. Moist mucous membranes. Neck: No cervical adenopathy. Cardiovascular: Regular rate and rhythm. No murmurs, rubs, or gallops. Pulmonary: Clear to auscultation bilaterally. Abdomen: Soft, nontender, nondistended. Bowel sounds positive. Extremities: Peripheral pulses intact. No clubbing, cyanosis or edema. Neurologic: Cranial nerves grossly intact. No focal deficits identified. Psych: Awake, alert, and oriented to person but not place or time. Cooperative. Most responses appropriate. Skin: No new rashes or lesions identified. ASSESSMENT AND PLAN: 1. Likely acute on chronic post hemorrhagic anemia related to GI bleed. Patient with profound anemia on admission with a hemoglobin of 4.5, transfused 4 units initially, has been stable since then. EGD largely unrevealing. GI planning on likely colonoscopy on Friday. Further recommendations pending. Has received IV iron, now on p.o. iron for profound iron deficiency. 2. Seizure disorder. Continue Lamictal. No seizures since admission. 3. Dementia. Cooperative. Conversation largely appropriate, but is at least mildly confused at all times. 4. Hypertension. Blood pressure has been occasionally elevated but largely with reasonable control. Continue to monitor. 5. Deep venous thrombosis prophylaxis. SCDs.
[2018-04-19] MEDS: PRILOSEC PO SCH (06:38)
[2018-04-19] MEDS: LAMICTAL PO SCH ×2 (08:57→16:50)
[2018-04-19] MEDS: ARICEPT PO SCH (08:57)
[2018-04-19] MEDS: NAMENDA XR PO SCH (08:57)
[2018-04-19] MEDS: ICAR-C PO SCH (08:57)
--- NOTE | 2018-04-19 13:11 | PROGRESS NOTE ---
DATE: 04/19/2018 SUBJECTIVE: Patient is resting in bed. Has family present in the room. OBJECTIVE: Vital signs: Temperature 99.1, pulse 74, blood pressure is 116/63, oxygen saturation is 95%. HEENT: Atraumatic, normocephalic. Cardiovascular system: S1, S2. Respiratory system: Has evidence of good air entry bilaterally. Abdomen: Soft, nontender. No masses felt. Extremities: No evidence of significant edema. Central nervous system: No obvious focal deficits noted. LABS: Blood sugar is 152. ASSESSMENT AND PLAN: 1. Profound anemia. Suspect GI bleed. The patient has had upper GI endoscopy with lower GI endoscopy still pending. Will follow up on patient's hemoglobin and hematocrit and transfuse PRBCs as needed. 2. Seizure disorder. Continue Lamictal. Maintain patient on seizure precaution. 3. Dementia. Continue Namenda as well as Aricept. 4. History of bipolar disorder. Continue appropriate psych medication. 5. Hypertension. Initiate antihypertensive medications. 6. Deep vein thrombosis prophylaxis. SCDs. cc: Yusuf Patel MD
[2018-04-19] MEDS ORDERED: GOLYTELY PO ONE (14:00)
[2018-04-19] MEDS: NORVASC PO SCH (16:49)
[2018-04-19] MEDS: SUPREP BOWEL PREP KIT PO SCH (17:10)
[2018-04-20] MEDS: SUPREP BOWEL PREP KIT PO SCH (06:09)
[2018-04-20] MEDS: PRILOSEC PO SCH (06:36)
[2018-04-20 07:22] LABS: FLOW CYTOMETERY SOURCE WHOLE BLOOD; LEUKEMIA LYMPHOMA BY FLOW REFERRED FOR TESTING
[2018-04-20 07:42] LABS: BASO# 0.05 X1000 (0.0-0.2); BASO% 0.8 % (0.0-0.8); EOS# 0.38 X1000 (0.0-0.7); EOS% 6.4 % (0.0-10.0); HEMATOCRIT 29.4 % (42.0-52.0); HEMOGLOBIN 8.7 g/dL (14.0-18.0); MCH 22.7 PG (27-31); MCHC 29.6 g/dL (33-37); MCV 76.8 FL (81-99); MONO# 0.65 X1000 (0.11-0.59); MPV 10.2 FL (7.4-10.4); NEUT# 3.52 X1000 (1.4-6.5); NEUT% 59.8 % (42.2-75.2); PLT 263 X1000 (130-400); RBC 3.83 XMIL (4.7-6.1); RDW 23.9 % (11.5-14.5)
[2018-04-20 07:45] LABS: AGAP 12; ALB/GLOB RATIO 1.4; ALBUMIN 3.3 g/dL (3.5-5.0); ALKALINE PHOSPHATASE 89 U/L (32-122); BUN 14 mg/dL (8-22); CALCIUM 8.6 mg/dL (8.8-10.2); CHLORIDE 104 mmol/L (98-107); COSMO 283; CREATININE 0.9 mg/dL (0.7-1.2); ESTIMATED GFR > 60; GLUCOSE 96 mg/dL (70-104); GOT 12 U/L (10-34); GPT 8 U/L (10-44); POTASSIUM 3.8 mmol/L (3.5-5.1); SODIUM 142 mmol/L (136-145); TCO2 26 mmol/L (25-35); TOTAL BILIRUBIN 0.43 mg/dL (0.20-1.00); TOTAL PROTEIN 5.6 g/dL (6.3-8.3)
[2018-04-20 08:37] VITALS: BP 150/66
[2018-04-20] MEDS: ICAR-C PO SCH (08:55)
[2018-04-20] MEDS: NAMENDA XR PO SCH (08:55)
[2018-04-20] MEDS: LAMICTAL PO SCH (08:55)
[2018-04-20] MEDS: NORVASC PO SCH (08:55)
[2018-04-20] MEDS: ARICEPT PO SCH (08:55)
--- NOTE | 2018-04-20 12:03 | PROGRESS NOTE ---
DATE: 04/20/2018 SUBJECTIVE: Patient is sitting up in the bed in no acute distress. His daughter is at the bedside. The patient had been tentatively scheduled for colonoscopy today, but family decided over the weekend they wanted to postpone that until patient was stronger. They want to wait and follow up with Dr. Cole as an outpatient. Hemoglobin and hematocrit today 8.7, 29.4, MCV 76.8. OBJECTIVE: Generally patient is awake and alert. No acute distress. LABORATORY: Hematology: WBC 5.90, hemoglobin 8.7, hematocrit 29.4, MCV 76.8, platelets 263. Chemistry 142, potassium 3.8, chloride 104, CO2 of 26, BUN 14, creatinine 0.9, glucose 96. ASSESSMENT AND PLAN: 1. Anemia. 2. EGD showed normal EGD except for duodenal diverticulum. Recommend to continue proton pump inhibitor. We will follow with the patient as an outpatient and further plans will be made as needed. He may need colonoscopy for further evaluation. Family wanted to wait until patient was stronger to go through colon prep and sedation. Again, I would recommend him follow up with us as an outpatient. I have given them my business card to call and make an office visit after discharge. I have discussed this case with Dr. Cole. Dictated by MARIAA Stauffer for Pee Cole MD cc: MARIAA Padilla MD
--- NOTE | 2018-04-21 04:23 | DISCHARGE SUMMARY ---
ADMISSION DATE: 04/15/2018 DISCHARGE DATE: 04/20/2018 PRINCIPAL DIAGNOSIS: Anemia secondary to iron deficiency. SECONDARY DIAGNOSES: 1. Seizure disorder. 2. Bipolar disorder. 3. Dementia. 4. Hypertension. 5. Hyperlipidemia. 6. Benign prostatic hypertrophy. 7. History of carotid stenosis. DISCHARGE MEDICATIONS: Include the followin. Amlodipine 5 mg p.o. daily. 2. Icar-C 1 p.o. daily. 3. Omeprazole 20 mg p.o. once a day. 4. Aricept 10 mg p.o. at bedtime. 5. Sertraline 100 mg p.o. daily. 6. Simvastatin 40 mg p.o. daily. 7. Flomax 0.4 mg at bedtime. 8. [place]-3 fatty acid 1 daily. 9. Lamotrigine 100 mg p.o. with supper. CONSULTATIONS DONE DURING THIS HOSPITAL STAY: Dr. Cole of Gastroenterology. Dr. Duran of Hematology Oncology. PROCEDURES DONE DURING THIS HOSPITAL STAY: Echocardiogram done on 03/29/2018. EGD done on 04/16/2018. HOSPITAL COURSE: Mr. Ranjeet Valdez is a 77-year-old male who has a history of hypertension, hyperlipidemia, bipolar disorder, seizure disorder as well as dementia. The patient's daughter states that over the past 2 weeks now the patient has become more fatigued as well as weak. When she presented to the ER she was found to have a hemoglobin of 14.5, a hematocrit of 17.3. Hemoccult was obtained but was negative. He subsequently had upper GI endoscopic studies done by Dr. Cole, and this was a normal study except for duodenal diverticula. The patient's family decided not to proceed with lower GI endoscopic studies. The patient has remained stable and can now be discharged home. He is going to be going home with home health services. PHYSICAL EVALUATION: Vital Signs: Temperature 98.6 degrees, pulse 73, respirations 16, blood pressure 150/66, oxygen pressure is 96%. HEENT: Atraumatic and normocephalic. Cardiovascular: S1, S2. Respiratory system: Has evidence of good air entry bilaterally. Abdomen: Soft, nontender. No masses felt. Extremities: No evidence of edema. Central nervous system: No obvious focal deficits. PLAN: Discharge home today with home health services. The patient will need to follow up with primary care physician as well as a Gastroenterology in the outpatient. I have also requested for the patient to follow up with Hematology as well. cc: Yusuf Patel MD
== END 2018-04-20 12:16 | disposition home health service (06) | DRG 812 ==
LOC: ED 16:52 → EDIPHOLD 21:32 → SUATTDRO 21:32 → 3N 04-16 01:25
PROVIDERS: ATTEND Internal Medicine
CPT/HCPCS: 36430; 71020; 71046; 80048; 80053; 81001; 82270; 82378; 82728; 82948; 83540; 83550; 83735; 83880; 84484; 85014; 85018; 85025; 85610; 85730; 86850; 86900; 86901; 86920; 88184; 88185; 90686; 93005; 93306; 93971; 94640; 94760; 94761; 96374; 96375; 97110; 97162; 99285; A9270; C8924; C8929; C9113; J0696; J2916; J7030; J7050; P9016; Q9957; S0164; XXXXX

== ENCOUNTER 2018-11-14 14:32 | Inpatient (IN) ==
[2018-11-14] MEDS ORDERED: MORPHINE IV ONE ×2 (15:07→17:28)
[2018-11-14 15:13] LABS: URINE SOURCE CLEAN CATCH
--- NOTE | 2018-11-14 15:14 | PROVIDER DOCUMENTATION ---
HPI-Musculoskeletal Pain/Inj - GENERAL Chief Complaint: Fall Stated Complaint: FALL/LT HIP PAIN Time Seen by Provider: 11/14/18 14:51 Source: family - HX OF PRESENT ILLNESS-MUSKULOSKELTAL Nature of Presenting Problem: 78 YO M pmh for dementia presents s/p fall and now having left hip pain. Pt currently lives with his daughter. He was seen attempting to put on his clothes in the hallway where he then fell onto his left side. he was unable to bear weight after the fall. The fall was witnessed by his daughter. He did not hit his head or have LOC. Daughter states she gave him Tylenol PM and an extra s trength tylenol. Pt walks normally without any assistance. Severity in ED: moderate Onset/Duration: 1-3 hours ago Timing: still present Modifying Factors: improves with: analgesics Locality of Occurance: Home Similar Symptoms Previously?: No Recently seen or treated by another doctor?: No - FALL INJURY Location of Pain/Injury: reports: pelvis Pain Radiation: reports: no radiation Reason for Fall: reports: lost balance Symptoms prior to fall:: reports: none - HIP/PELVIS PAIN/INJURY Hip Pain Location: reports: hip (L) Pain Radiation: reports: no radiation Context / Method of Injury: reports: direct blow, fall - LOWER EXTREMITY PAIN/INJURY Lower Extremities Pain: hip: left Context / Method of Injury: reports: fell Associated Symptoms: reports: denies symptoms Review of Systems - Adult - REVIEW OF SYSTEMS - ADULT ROS:: limited per condition Constitutional: denies: chills, fever Eyes: reports: no symptoms reported Ears, Nose, Mouth & Throat: reports: no symptoms reported Cardiovascular: reports: no symptoms reported Respiratory: denies: cough, dyspnea on exertion, shortness of breath, wheezing Gastrointestinal: denies: abdominal pain, diarrhea Genitourinary: reports: incontinence. denies: hematuria, urinary retention Past History - Adult - PAST MEDICAL HISTORY-ADULT Review of Records: reports: Old Records Reviewed, Nursing Assessment Review, Social history reviewed & non-contributory. Major Childhood Illnesses: reports: denies history Cardiovascular: reports: HTN, hyperlipidemia Respiratory: reports: COPD Gastrointestinal: reports: denies history Obstetrical/Gynecological: reports: denies history Genitourinary: reports: denies history Musculoskeletal: reports: denies history Neurological: reports: dementia, Seizures/Epilepsy Psychiatric: reports: bipolar Endocrine/Immune: reports: anemia Other Conditions: reports: denies history - PRIOR SURGERIES/PROCEDURES Surgical/Procedure History: reports: reviewed, not pertinent - IMMUNIZATION STATUS Childhood Immunizations: See Nurse Assessment Flu Vaccine: See Nurse Assessment - FAMILY HISTORY Family History: reviewed, not pertinent - SOCIAL HISTORY Smoking: cigarettes, greater than 1 pack/day Living Situation: family Physical Exam-Injury Related - Physical Exam-Injury Related General Appearance: alert, no apparent distress Eyes: PERRL/EOMI Head, Ears, Nose, Mouth & Throat: normocephalic/atraumatic Neck: non-tender, supple, normal inspection Respiratory: chest non-tender, lungs clear, normal breath sounds, no respiratory distress, no accessory muscle use Cardiovascular: regular rate, rhythm, no edema, no JVD Abdominal Exam: normal bowel sounds, non tender, soft. negative: distended Extremity: normal inspection, no pedal edema, pelvis stable. negative: normal range of motion (decreased passive range of motion, limited by pain. pain with flexion of left leg. neurovascular intact, no ecchymosis noted) Integumentary: normal color, warm/dry Neurologic: grossly normal Psych/Mental Status: normal mood/affect Progress - PLAN OF CARE/RESULTS Progress/Plan/Lab Results: Vital Signs - 8 hr 11/14/18 14:35 Temperature 98.6 F Pulse Rate 66 Respiratory Rate 16 Blood Pressure 132/67 O2 Sat by Pulse Oximetry 97 Laboratory Results - last 24 hr 11/14/18 11/14/18 11/14/18 15:05 15:37 15:37 WBC 10.73 RBC 4.31 L Hgb 14.2 Hct 42.7 MCV 99.1 H MCH 32.9 H MCHC 33.3 RDW Std Deviation 13.2 Plt Count 163 MPV 10.3 Immature Gran % (Auto) 0.3 Neut % (Auto) 78.2 H Lymph % (Auto) 13.1 L Turner % (Auto) 5.5 Eos % (Auto) 2.5 Baso % (Auto) 0.4 Immature Gran # (Auto) 0.03 Neut # (Auto) 8.39 H Lymph # (Auto) 1.41 Turner # (Auto) 0.59 Eos # (Auto) 0.27 Baso # (Auto) 0.04 Sodium 140 Potassium 3.9 Chloride 101 Carbon Dioxide 31 Anion Gap 8 BUN 17 Creatinine 1.3 H Estimated GFR/1.73 m2 53 BUN/Creatinine Ratio 13 Glucose 81 Calculated Osmolality 280 Calcium 9.0 Magnesium 2.1 Total Bilirubin 0.33 AST 20 ALT 24 Alkaline Phosphatase 108 Total Protein 7.0 Albumin 4.5 Globulin 2.5 Albumin/Globulin Ratio 1.8 Urine Source CLEAN CATCH Urine Color YELLOW Urine Turbidity CLEAR Urine pH 6.0 Ur Specific Farson 1.022 Urine Protein 30 A Ur Glucose (Stick) NEGATIVE Ur Ketones (Stick) NEGATIVE Urine Blood NEGATIVE Urine Nitrite NEGATIVE Urine Bilirubin NEGATIVE Urobilinogen Dipstick NORMAL Urine Leukocytes NEGATIVE Urine WBC (Auto) <10 Urine RBC (Auto) <10 U Epithel Cells (Auto) <10 Urine Bacteria (Auto) NEGATIVE Orders Category Date Time Status Nursing- MD Consult Request ROUTINE Care 11/14/18 20:51 Active Repeat Vital Signs .Oxygen Saturation Care 11/14/18 20:47 Active Update & Confirm Home Medicati ROUTINE Care 11/14/18 20:45 Active Physician/Provider Consults Routine Cons 11/15/18 08:[address] ABDOMEN/PELVIS W/O CONTRAST [CT] Stat Exams 11/14/18 15:06 Completed XRAY PELVIS W/HIP 2-3VW LT [RAD] Stat Exams 11/14/18 15:12 Completed CBC WITH ELECTRONIC DIFF [HEME] Stat Lab 11/14/18 15:37 Completed COMPREHENSIVE METABOLIC PANEL [CHEM] Stat Lab 11/14/18 15:37 Completed MAGNESIUM [CHEM] Stat Lab 11/14/18 15:37 Completed TYPE & SCREEN [BBK] Stat Lab 11/14/18 15:37 Results UA [URINALYSIS W/POSS RFLX CULT] [URINALYSIS] Stat Lab 11/14/18 15:05 Completed 0.9% Sodium Chloride Inj [Ns] 1,000 ml Med 11/14/18 16:16 Discontinued IV 999 mls/hr Hydromorphone [Dilaudid] Med 11/14/18 20:18 Discontinued 0.5 mg IV NOW ONE Lorazepam [Ativan] Med 11/14/18 19:06 Discontinued 0.5 mg IV NOW ONE Morphine Med 11/14/18 15:07 Discontinued 4 mg IV NOW ONE Morphine Med 11/14/18 17:28 Discontinued 4 mg IV NOW ONE Transfer/Admit Order [TRANSFER] Routine Transfer 11/14/18 20:51 Ordered Result Diagrams: 11/14/18 15:37 08/31/19 15:37 - REASSESSMENT Reassessment #1 Time Reassessed: 17:25 Status: unchanged (pt states he is still hurting. Labs reviewed. waiting on read for CT. no abnormality seen on plain film. Will give another dose of morhpine. planning for admission.) Reassessment #2 Status: unchanged (hospitalist paged at [phone], no response. Repaged at [phone], no response, will page again. Pt in pain, ativan has not yet been given. Will give ativan and dilaudid. pt ready for admission.) Reassessment #3 Status: improving (pt received pain medication. pain improved. spoke with ortho, will see in AM. pt admitted by hospitalist.) - XRAY 1 XRAY Study: Pelvis, Hip (normal) Impression: Abnormal (left femoral neck fracture), Need Further Study Comparison with other Films: no prior study - CT/MRI 1 CT Study: Abdomen, Pelvis Impression: Abnormal (EXAM: CT ABDOMEN/PELVIS W/O CONTRAST INDICATION: s/p fall, left hip pain TECHNIQUE: This exam was performed using automated exposure control, adjustment of mA or kV according to patient size, and/or use of iterative reconstruction technique. COMPARISON: 06/23/2017 FINDINGS: There is mild subsegmental atelectasis at the lung bases. The liver, gallbladder, spleen, pancreas, and adrenal glands are grossly unremarkable as imaged with unenhanced CT. There is a small nonobstructing intrarenal stone on the left. There is no hydronephrosis. The kidneys are grossly unremarkable, otherwise. The prostate is markedly enlarged but is stable. The urinary bladder is partially distended and is unremarkable, otherwise. There is diverticulosis coli but no evidence of diverticulitis. There is no evidence of bowel obstruction. The remainder of the GI tract is grossly unremarkable as imaged with unenhanced CT. There is extensive aortoiliac atherosclerotic calcification. There is a subcapital fracture of the left femoral neck with mild anterior apex angulation. There is advanced degenerative arthropathy throughout the spine. No other discrete fracture is identified. IMPRESSION: 1.Left femoral neck fracture as described. 2.Other incidental/nonacute findings detailed above. No definite acute intra-abdominal pathology. Electronically signed by Eduar Barber 11/14/2018 5:46 PM), See EMR Report - CONSULTS/PCP/HOSPITALIST Notification #1 *Consult/PCP/Hospitalist*: Dr. South accepts admission. Spoke with Dr. Arroyo for ortho. Time Discussed: 20:30 (accepts admission, ortho will see in morning.) Consult Disposition: Will see in ED Departure - Departure Date of Disposition Decision: 11/14/18 Time of Disposition Decision: 18:06 DIAGNOSIS: Fracture of femoral neck, left, Left hip pain, Creatinine elevation Disposition: ADMITTED INPATIENT 09 Certified Medical Emergency: Emergent Condition: Stable - Critical Care Note This patient required my direct & personal management of CC.: No Attestation - Physician/ ELMER Attestation The physician spent face to face time with patient:: Yes Advanced Practice Provider documentation review:: Supervising physician onsite and consulted in the evaluation and care of this patient. The physician did have a face to face encounter with the patient.
[2018-11-14 15:15] LABS: BILIRUBIN URINE NEGATIVE (NEGATIVE); BLOOD URINE NEGATIVE (NEGATIVE); COLOR YELLOW; GLUCOSE URINE NEGATIVE (NEGATIVE); KETONE URINE NEGATIVE (NEGATIVE); LEUKOCYTES URINE NEGATIVE (NEGATIVE); NITRITE URINE NEGATIVE (NEGATIVE); PROTEIN URINE 30 mg/dL (NEGATIVE); SP GRAVITY URINE 1.022; TURBIDITY URINE CLEAR (CLEAR); UR EPITHELIAL CELLS <10 /HPF (<10); URINE BACTERIA NEGATIVE /HPF; URINE RBC <10 /HPF (<10); URINE WBC <10 /HPF (<10); UROBILINOGEN URINE NORMAL (NORMAL)
[2018-11-14 15:47] LABS: BASO# 0.04 X1000 (0.0-0.2); BASO% 0.4 % (0.0-0.8); EOS# 0.27 X1000 (0.0-0.7); EOS% 2.5 % (0.0-10.0); HEMATOCRIT 42.7 % (42.0-52.0); HEMOGLOBIN 14.2 g/dL (14.0-18.0); IMM GRAN# 0.03 X1000 (0.0-0.04); IMM GRAN% 0.3 % (0.0-0.5); LYMPH# 1.41 X1000 (1.2-3.4); LYMPH% 13.1 % (20.5-51.1); MCH 32.9 PG (27-31); MCHC 33.3 g/dL (33-37); MCV 99.1 FL (81-99); MONO# 0.59 X1000 (0.11-0.59); MONO% 5.5 % (1.7-9.3); MPV 10.3 FL (7.4-10.4); NEUT# 8.39 X1000 (1.4-6.5); NEUT% 78.2 % (42.2-75.2); PLT 163 X1000 (130-400); RBC 4.31 XMIL (4.7-6.1); RDW 13.2 % (11.5-14.5); WBC 10.73 X1000 (4.8-10.8)
[2018-11-14 16:04] LABS: ALB/GLOB RATIO 1.8; ALBUMIN 4.5 g/dL (3.5-5.0); CREATININE 1.3 mg/dL (0.7-1.2); MAGNESIUM 2.1 mg/dL (1.5-2.7); POTASSIUM 3.9 mmol/L (3.5-5.1); TOTAL BILIRUBIN 0.33 mg/dL (0.20-1.00)
[2018-11-14] MEDS ORDERED: NS 1,000 ML IV ONE (16:16)
--- NOTE | 2018-11-14 17:48 | Diag Imaging Result Doc PS360 ---
EXAM: CT ABDOMEN/PELVIS W/O CONTRAST INDICATION: s/p fall, left hip pain TECHNIQUE: This exam was performed using automated exposure control, adjustment of mA or kV according to patient size, and/or use of iterative reconstruction technique. COMPARISON: 06/23/2017 FINDINGS: There is mild subsegmental atelectasis at the lung bases. The liver, gallbladder, spleen, pancreas, and adrenal glands are grossly unremarkable as imaged with unenhanced CT. There is a small nonobstructing intrarenal stone on the left. There is no hydronephrosis. The kidneys are grossly unremarkable, otherwise. The prostate is markedly enlarged but is stable. The urinary bladder is partially distended and is unremarkable, otherwise. There is diverticulosis coli but no evidence of diverticulitis. There is no evidence of bowel obstruction. The remainder of the GI tract is grossly unremarkable as imaged with unenhanced CT. There is extensive aortoiliac atherosclerotic calcification. There is a subcapital fracture of the left femoral neck with mild anterior apex angulation. There is advanced degenerative arthropathy throughout the spine. No other discrete fracture is identified. IMPRESSION: 1.Left femoral neck fracture as described. 2.Other incidental/nonacute findings detailed above. No definite acute intra-abdominal pathology. Electronically signed by Eduar Barber 11/14/2018 5:46 PM
[2018-11-14] MEDS ORDERED: ATIVAN IV ONE (19:06)
--- NOTE | 2018-11-14 19:39 | Diag Imaging Result Doc PS360 ---
EXAM: XRAY PELVIS W/HIP 2-3VW LT INDICATION: s/p fall, now left hip pain TECHNIQUE: 3 views COMPARISON: None. FINDINGS: There is a nondisplaced fracture involving the left femoral neck. There are extensive degenerative changes involving the lower lumbar spine. There is no other discrete fracture, dislocation, or significant intrinsic osseous lesion. The surrounding soft tissues are essentially unremarkable. IMPRESSION: Nondisplaced fracture of the left femoral neck as described. Electronically signed by Eduar Barber 11/14/2018 7:37 PM
[2018-11-14] MEDS ORDERED: DILAUDID IV ONE (20:18)
[2018-11-15] MEDS ORDERED: NS 1,000 ML IV SCH (00:20)
[2018-11-15] MEDS: MORPHINE IV PRN ×2 (00:51→05:32)
[2018-11-15] MEDS: ZOFRAN IV PRN ×2 (00:52→05:32)
[2018-11-15 04:53] LABS: URINE SOURCE CATH
[2018-11-15 05:10] LABS: BILIRUBIN URINE NEGATIVE (NEGATIVE); BLOOD URINE LARGE (NEGATIVE); COLOR BROWN; GLUCOSE URINE NEGATIVE (NEGATIVE); KETONE URINE NEGATIVE (NEGATIVE); LEUKOCYTES URINE SMALL (NEGATIVE); NITRITE URINE NEGATIVE (NEGATIVE); PH URINE 6.5; PROTEIN URINE 50 mg/dL (NEGATIVE); SP GRAVITY URINE 1.015; TURBIDITY URINE TURBID (CLEAR); UR EPITHELIAL CELLS <10 /HPF (<10); URINE BACTERIA NEGATIVE /HPF; URINE RBC TNTC /HPF (<10); UROBILINOGEN URINE NORMAL (NORMAL)
[2018-11-15 05:45] LABS: BASO# 0.05 X1000 (0.0-0.2); BASO% 0.7 % (0.0-0.8); EOS% 4.2 % (0.0-10.0); HEMOGLOBIN 12.9 g/dL (14.0-18.0); LYMPH# 1.19 X1000 (1.2-3.4); LYMPH% 16.8 % (20.5-51.1); MCH 32.7 PG (27-31); MCHC 33.1 g/dL (33-37); MCV 98.7 FL (81-99); MONO# 0.74 X1000 (0.11-0.59); MONO% 10.5 % (1.7-9.3); MPV 10.7 FL (7.4-10.4); NEUT% 67.8 % (42.2-75.2); PLT 143 X1000 (130-400); RBC 3.95 XMIL (4.7-6.1); RDW 12.8 % (11.5-14.5); WBC 7.08 X1000 (4.8-10.8)
[2018-11-15 05:45] LABS: URINE CASTS NONE SEEN; URINE CRYSTALS NONE SEEN; URINE SMALL ROUND CELLS NONE SEEN; URINE YEAST NONE SEEN
[2018-11-15 06:06] LABS: INR 1.13; PROTIME 14.7 Seconds (11.0-16.0)
[2018-11-15 06:07] LABS: PTT 39.8 Seconds (22.3-41.8)
[2018-11-15 06:15] LABS: AGAP 11; BUN 14 mg/dL (8-22); CALCIUM 8.6 mg/dL (8.8-10.2); CHLORIDE 105 mmol/L (98-107); COSMO 285; CREATININE 0.9 mg/dL (0.7-1.2); ESTIMATED GFR > 60; GLUCOSE 98 mg/dL (70-104); POTASSIUM 4.3 mmol/L (3.5-5.1); SODIUM 143 mmol/L (136-145); TCO2 27 mmol/L (25-35)
[2018-11-15] MEDS ORDERED: KEFZOL 1 GM/D5W 1 GM/50 ML IVPB IV ONE (07:20)
--- NOTE | 2018-11-15 07:49 | ORTHOPAEDICS CONSULTATION ---
DATE: 11/15/2018 CHIEF COMPLAINT: Left hip pain. HISTORY OF PRESENT ILLNESS: Ranjeet Valdez is a 78-year-old male who complains of left hip pain after a same-level fall. He apparently fell against the wall. It was witnessed by his daughter. There was no loss of consciousness. He complains of left hip pain and inability to ambulate. PAST MEDICAL HISTORY: Significant for hypertension, hyperlipidemia, COPD, history of dementia, seizures and epilepsy, as well as bipolar disorder, history of anemia. PAST SURGICAL HISTORY: None. SOCIAL HISTORY: Admits to smoking greater than a pack a day. REVIEW OF SYSTEMS: Negative, except as noted above. PHYSICAL EXAMINATION: General: Well-developed, well-nourished male. He is alert, oriented, and cooperative with exam. Extremities: Examination of his left hip reveals pain with any range of motion. His leg is otherwise neurovascularly intact. IMAGING: X-rays show a nondisplaced left femoral neck fracture. IMPRESSION: Nondisplaced left femoral neck fracture. PLAN: I have discussed with the family, treatment options. They requested that we proceed with surgery. I have discussed with him, the risks, benefits, and alternatives of surgery, including but not limited to, bleeding, nerve damage, infection, risk from anesthesia, hardware failure, malunion, nonunion, up to and including loss of limb and life and other imponderables. They voiced understanding. All questions were answered. No guarantees were given. They requested to proceed as planned. Will schedule surgery later today. cc: Kraig Arroyo MD
--- NOTE | 2018-11-15 09:19 | HISTORY AND PHYSICAL ---
CHIEF COMPLAINT: Fall with left hip pain. HISTORY OF PRESENT ILLNESS: This is a 78-year-old male with end stage dementia, who fell at home and came in with having left hip pain. He lives with his daughter. He was unable to bear weight. In the ER, he was found to have a left femoral neck fracture. He will be admitted with consultation for Ortho. PAST MEDICAL HISTORY: Hypertension, bipolar disorder, seizure disorder, dementia, hyperlipidemia, carotid stenosis, BPH. PAST SURGICAL HISTORY: Shoulder surgery. SOCIAL HISTORY: Smokes half a pack of cigarettes to a pack of cigarettes. No alcohol. No illicit drugs. Retired from [employer]. He lives with his daughter who is his full-time caregiver. FAMILY HISTORY: Mother had Alzheimer's and hyperlipidemia. Father had heart disease, hypertension and hyperlipidemia. ALLERGIES: Penicillin. HOME MEDICATIONS: A list of home medications has not been reconciled. An order was placed for the nurse to reconcile home medications in the computer. These will be restarted when appropriate. REVIEW OF SYSTEMS: A 14-point review of systems cannot be conducted related to the patient being disoriented except for to person. PHYSICAL EXAMINATION: VITAL SIGNS: Temperature is 98.2, pulse 69, blood pressure 129/77, oxygen saturation 93% on room air. GENERAL: A pleasantly confused 78-year-old male oriented only to person, lying on the ER stretcher. He does not respond to most questions. Daughter is at bedside and very attentive. HEENT: Head is atraumatic and normocephalic. Pupils are equal, round and reactive to light. Extraocular eyes movements intact. Sclerae anicteric. Conjunctivae are pink. Oral mucosa is dry. NECK: Supple. No JVD. No thyromegaly. Trachea is midline. No cervical lymphadenopathy. CARDIAC: S1 and S2 appreciated. No murmurs, gallops or rubs. LUNGS: Clear to auscultation bilaterally. No rhonchi, wheezes or rales. Symmetric rise and fall with respirations. ABDOMEN: Soft, nondistended and nontender. Bowel sounds present in all 4 quadrants and normoactive. No pulsatile mass. No organomegaly. EXTREMITIES: The patient defers to move left side related to pain. Neurovascular intact. There are 2+ pedal pulses bilaterally. MUSCULOSKELETAL: All extremities other than left lower extremity appeared to have normal range of motion, 4/5 strength. NEUROLOGICAL: Oriented only to person. Cranial nerves II through XII appear to be otherwise grossly intact. DIAGNOSTIC DATA: CT of the abdomen and pelvis shows a left femoral neck fracture. Laboratory data shows WBC of 10.73, hemoglobin 14.2, hematocrit 42.7, platelet count 163. Sodium is 140, potassium 3.9, chloride 101, carbon dioxide 31, BUN is 17, creatinine 1.3, glucose 81. Urine unremarkable. ASSESSMENT AND PLAN: 1. Left femoral neck fracture. Morphine as needed for pain. Consult Ortho. Lincoln traction if recommended by Ortho. 2. Acute kidney injury. Given normal saline. Recheck laboratory data. 3. History of epilepsy where he does not take seizure medication anymore, from what I understand. A list of home medications is being reconciled. These will be restarted with appropriate. 4. End stage dementia, aware. As noted above, we will restart home medications when appropriate. Further recommendations based on the patient's clinical course. Dictated by MARIAA Harrell for Haryr South MD\ I have performed a face to face diagnostic evaluation. Labs/ Xrays- reviewed. Exam- chest - clear, Ext- Left hip tenderness. A/P- Left femoral neck fracture- Admit, pain control. Ortho consult. Dr. South cc: MARIAA Harrell MD Primary [facility] provider [facility]
--- NOTE | 2018-11-15 10:58 | PROGRESS NOTE ---
DATE: 11/15/2018 SUBJECTIVE: This patient is resting in bed. He is complaining of headache. He has advanced dementia. Today he will go to the OR to repair the left femoral neck fracture. Orthopedic surgery on board. I had a large conversation with his daughters, and for now he will be full code. OBJECTIVE: Vital Signs: Temperature 99.2 degrees, pulse 70, respiratory rate 18, blood pressure 134/65, oxygen saturation 96 on nasal cannula. HEENT: Head normocephalic, no trauma. Neck: Supple, no JVD. No masses. Central trachea. Chest: Clear to auscultation. No wheezing. No rales. Abdomen: Soft, nontender, nondistended. No hepatosplenomegaly. Extremities: No edema, no clubbing, no cyanosis. This patient defers to move left side related to pain. I do not see any neurovascular lesion. Neurological: This patient is sleepy. He has advanced dementia. LABORATORY: WBC 7000, hemoglobin 12.9, hematocrit 39, platelets 143,000. Sodium 143, potassium 4.3, chloride 105, bicarbonate 27, BUN 14, creatinine 0.9, glucose 98, calcium 8.6. ASSESSMENT AND PLAN: 1. Left femoral neck fracture. We will continue with same management. Hopefully today he will we go to the operating room to fix the fracture. We will continue to monitor this patient closely. 2. Acute kidney injury, resolved. 3. Advanced dementia, aware. We will continue with home medications when appropriate. He is NPO right now. 4. History of epilepsy, aware. I will restart all his medications when appropriate. 5. History of severe anemia. He has been worked up at the beginning of this year and nothing really was found. He received some iron infusion and the hemoglobin improved. At this moment the hemoglobin is stable at 12.9. We will keep an eye on these since his wean since he will require probably some anticoagulation during this hospitalization and discharge. cc: Jorge Swartz MD
[2018-11-15] MEDS ORDERED: XYLOCAINE-MPF 2% ONE (11:10)
[2018-11-15] MEDS ORDERED: ROBINUL ONE (11:10)
[2018-11-15] MEDS ORDERED: DIPRIVAN 1% ONE (11:10)
[2018-11-15] MEDS ORDERED: ZOFRAN ONE (11:28)
[2018-11-15] MEDS ORDERED: OFIRMEV 1000 MG/ISOTONIC SOLN 1,000 MG/100 ML BOTTLE ONE (11:28)
[2018-11-15] MEDS ORDERED: TORADOL ONE (11:28)
[2018-11-15] MEDS ORDERED: DECADRON ONE (11:28)
[2018-11-15] MEDS ORDERED: MILK OF MAGNESIA PO PRN (13:56)
[2018-11-15] MEDS ORDERED: MORPHINE IV PRN (13:56)
[2018-11-15] MEDS ORDERED: ZOFRAN IV PRN (13:56)
--- NOTE | 2018-11-15 14:38 | OPERATIVE NOTE ---
PROCEDURE DATE: 11/15/2018 PREOPERATIVE DIAGNOSIS: Left subcapital femoral neck fracture, mildly impacted. POSTOPERATIVE DIAGNOSIS: Left subcapital femoral neck fracture, mildly impacted. PROCEDURE: Closed reduction and percutaneous pinning of left subcapital femoral neck fracture with 7.3 cannulated screws. ANESTHESIA: General. SURGEON: Kraig Arroyo MD. COMPLICATIONS: None. BLOOD LOSS: Minimal. DESCRIPTION OF PROCEDURE: Patient brought to the operative suite and placed in the supine position. After successful administration of general anesthesia, patient placed on the OSI table in the usual position for a left hip. The left hip was then prepped and draped in the usual sterile fashion. A longitudinal incision was made overlying the flare of the greater trochanter. This was dissected sharply through the skin and then three 7.3 cannulated screw guide pins were placed in an inverted triangle. Once these were verified to be in good position, they were measured at 100 mm inferiorly and 95 mm for the 2 superior pins. The outer cortex was reamed and the screws were driven into place and the pins removed. Post x-ray showed excellent reduction the fracture and placement of the hardware. The wound was copiously irrigated. Skin edge approximated with 2-0 Vicryl. Skin was closed with skin nat. A sterile dressing applied. The patient tolerated the procedure well without complication. At the end the procedure, all counts were correct x2. The patient was transferred to the recovery room in stable condition. cc: Kraig Arroyo MD
[2018-11-15] MEDS: OXY IR PO PRN (14:45)
[2018-11-15] MEDS: LAMICTAL PO SCH ×2 (14:46→16:28)
[2018-11-15] MEDS: FLOMAX PO SCH (16:28)
[2018-11-15] MEDS: NAMENDA XR PO SCH (16:28)
[2018-11-15] MEDS: ZOCOR PO SCH (16:28)
[2018-11-15] MEDS: NS 1,000 ML IV SCH (16:29)
[2018-11-15] MEDS: NICODERM PATCH TD SCH (16:41)
[2018-11-15] MEDS: KEFZOL 1 GM/D5W 1 GM/50 ML IVPB IV SCH (19:50)
[2018-11-15] MEDS: TYLENOL PO SCH (19:51)
[2018-11-15] MEDS: DESYREL PO SCH (19:52)
[2018-11-15] MEDS: COLACE PO SCH (19:52)
[2018-11-15] MEDS: FISH OIL CONCENTRATE PO SCH (19:58)
[2018-11-15] MEDS ORDERED: FISH OIL CONCENTRATE PO SCH (21:00)
[2018-11-15] MEDS ORDERED: COLACE PO SCH (21:00)
[2018-11-16] MEDS: DESYREL PO SCH ×2 (01:31→20:30)
[2018-11-16] MEDS: FISH OIL CONCENTRATE PO SCH ×3 (01:31→20:30)
[2018-11-16] MEDS: COLACE PO SCH ×2 (01:31→20:30)
[2018-11-16] MEDS: LOPROX 0.77% TOP SCH ×2 (01:32→20:31)
[2018-11-16] MEDS: KEFZOL 1 GM/D5W 1 GM/50 ML IVPB IV SCH (03:37)
[2018-11-16] MEDS: HALDOL IV PRN ×2 (04:10→20:29)
[2018-11-16] MEDS: LOVENOX SUBQ SCH ×2 (04:11→06:53)
[2018-11-16 06:48] LABS: BASO# 0.01 X1000 (0.0-0.2); BASO% 0.1 % (0.0-0.8); EOS# 0.21 X1000 (0.0-0.7); EOS% 2.8 % (0.0-10.0); HEMATOCRIT 35.4 % (42.0-52.0); HEMOGLOBIN 11.7 g/dL (14.0-18.0); IMM GRAN# 0.02 X1000 (0.0-0.04); IMM GRAN% 0.3 % (0.0-0.5); LYMPH% 21.7 % (20.5-51.1); MCH 32.5 PG (27-31); MCHC 33.1 g/dL (33-37); MCV 98.3 FL (81-99); MONO# 0.69 X1000 (0.11-0.59); MONO% 9.3 % (1.7-9.3); MPV 10.8 FL (7.4-10.4); NEUT# 4.86 X1000 (1.4-6.5); NEUT% 65.8 % (42.2-75.2); PLT 128 X1000 (130-400); RDW 12.6 % (11.5-14.5); WBC 7.39 X1000 (4.8-10.8)
[2018-11-16] MEDS: TYLENOL PO SCH ×3 (06:53→20:30)
[2018-11-16] MEDS: PRILOSEC PO SCH (06:55)
[2018-11-16] MEDS: NS 1,000 ML IV SCH ×4 (07:14→23:04)
[2018-11-16 07:25] LABS: AGAP 7; BUN 14 mg/dL (8-22); CALCIUM 8.3 mg/dL (8.8-10.2); CHLORIDE 103 mmol/L (98-107); COSMO 275; ESTIMATED GFR > 60; GLUCOSE 105 mg/dL (70-104); POTASSIUM 3.7 mmol/L (3.5-5.1); SODIUM 137 mmol/L (136-145); TCO2 27 mmol/L (25-35)
[2018-11-16] MEDS: LAMICTAL PO SCH ×2 (11:05→18:11)
[2018-11-16] MEDS: ARICEPT PO SCH (11:06)
[2018-11-16] MEDS: NICODERM PATCH TD SCH (11:07)
[2018-11-16] MEDS: FERROUS SULFATE PO SCH (11:07)
--- NOTE | 2018-11-16 12:01 | PROGRESS NOTE ---
DATE: 11/16/2018 SUBJECTIVE: Patient resting comfortably in bed. He does have hematuria. Apparently, he pulled his Black catheter. He received anticoagulation today, but I will hold his anticoagulation for now, and I will put him on SCDs. Otherwise, he seems to be doing good. Vital signs are stable, as well as laboratory. OBJECTIVE: Vital Signs: Temperature 98.3 degrees, pulse 59, respiratory rate 14, blood pressure 138/65, oxygen saturation 98 on room air. HEENT: Head normocephalic. No trauma. PERRLA. Neck: Supple. No JVD. No masses. Central trachea. Chest: Clear to auscultation. No wheezing. No rales. Abdomen: Soft, nontender, nondistended. No hepatosplenomegaly. Extremities: No edema. No clubbing. No cyanosis. Pain at the level of the left hip. Wound looks fine. I do not see any neurovascular lesion. Neurological: This patient is awake. He has advanced dementia. He moves all 4 extremities spontaneously. LABORATORY DATA: WBC 7.3, hemoglobin 11.7, hematocrit 35.4, platelets 128,000. Sodium 137, potassium 3.7, chloride 103, bicarbonate 27, BUN 14, creatinine 1, glucose 105, calcium 8.3. ASSESSMENT AND PLAN: 1. Left subcapital femoral neck fracture, status post closed reduction and percutaneous pinning of the left subcapital femoral neck fracture with cannulated screws, postoperative day #1. He seems to be doing good. He does have hematuria because he tried to pull out his Black catheter. Will continue with intravenous fluids. I will hold the anticoagulation. I will put this patient on sequential compression devices. 2. Acute kidney injury, resolved. 3. Advanced dementia, aware. Will continue home medications. 4. Traumatic hematuria, as above. Continue with intravenous fluids. 5. History of epilepsy, aware. 6. History of severe anemia. Hemoglobin and hematocrit are stable. Will monitor this patient closely. cc: Jorge Swartz MD
--- NOTE | 2018-11-16 12:39 | ORTHOPAEDICS PROGRESS NOTE ---
DATE: 11/16/2018 SUBJECTIVE: Ranjeet Valdez is a 78-year-old male postoperative day 1 from a left femoral neck fracture, closed reduction percutaneous pinning. He is resting comfortably now. Apparently, last night he had an episode of agitation. OBJECTIVE: He is a well-developed, well-nourished male. He is cooperative with exam. His wound is clean, dry, intact without sign of infection. His leg is neurovascularly intact. LABORATORY DATA: His hematocrit is 35.4. ASSESSMENT: Stable left hip, closed reduction and percutaneous pinning. PLAN: We will get therapy to work with him. He will likely go to rehab later in the week. cc: Kraig Arroyo MD
[2018-11-16] MEDS: OXY IR PO PRN ×2 (16:12→22:55)
[2018-11-16] MEDS: FLOMAX PO SCH (18:10)
[2018-11-16] MEDS: NAMENDA XR PO SCH (18:10)
[2018-11-16] MEDS: ZOCOR PO SCH (18:10)
[2018-11-16] MEDS: MORPHINE IV PRN (18:15)
[2018-11-17] MEDS: TYLENOL PO SCH ×4 (03:30→22:12)
[2018-11-17 05:54] LABS: HEMATOCRIT 36.2 % (42.0-52.0); HEMOGLOBIN 11.8 g/dL (14.0-18.0)
[2018-11-17 06:31] LABS: AGAP 12; BUN 10 mg/dL (8-22); CALCIUM 8.3 mg/dL (8.8-10.2); CHLORIDE 109 mmol/L (98-107); COSMO 287; CREATININE 0.9 mg/dL (0.7-1.2); ESTIMATED GFR > 60; GLUCOSE 83 mg/dL (70-104); SODIUM 145 mmol/L (136-145); TCO2 24 mmol/L (25-35)
[2018-11-17] MEDS: PRILOSEC PO SCH ×2 (07:10→10:26)
[2018-11-17] MEDS: FERROUS SULFATE PO SCH (10:26)
[2018-11-17] MEDS: NICODERM PATCH TD SCH (10:26)
[2018-11-17] MEDS: ARICEPT PO SCH (10:27)
[2018-11-17] MEDS: FISH OIL CONCENTRATE PO SCH ×2 (10:27→22:12)
[2018-11-17] MEDS: LAMICTAL PO SCH ×2 (10:27→17:18)
[2018-11-17] MEDS: NS 1,000 ML IV SCH (10:36)
[2018-11-17] MEDS: PERIDEX MT SCH ×2 (11:31→22:11)
--- NOTE | 2018-11-17 12:46 | Diag Imaging Result Doc PS360 ---
CHEST-1 VIEW - 11/17/2018 INDICATION: rehab COMPARISON: 04/15/2018 FINDINGS: The lungs are clear. Heart size is normal. No pneumothorax or pleural effusion. IMPRESSION: Negative exam. Electronically signed by Terrell Linton 11/17/2018 12:43 PM
[2018-11-17] MEDS: OXY IR PO PRN ×2 (13:40→22:12)
--- NOTE | 2018-11-17 13:59 | PROGRESS NOTE ---
DATE: 11/17/2018 SUBJECTIVE: Patient resting comfortably in bed. It looks like the Black catheter has been removed and his urine has been clearing up, apparently it is pinkish at this moment, he has good urine output as well. OBJECTIVE: Vital Signs: Temperature 98.8 degrees, pulse 77, respiratory rate 16, blood pressure 115/58, oxygen saturation 93 on room air. HEENT: Head normocephalic, no trauma. PERRLA. Neck: Supple. No JVD. No masses. Central trachea. Chest: Clear to auscultation. No wheezing. No rales. Abdomen: Soft. Extremities: No edema, no clubbing, no cyanosis. Pain at the level of the left hip at the wound looks fine. I do not see any neurovascular lesion. Neurological: The patient is awake he has advanced dementia. He moves all 4 extremities spontaneously. LABORATORY: Hemoglobin 11.8, hematocrit 36.2. Sodium 145, potassium 4, chloride 109, bicarbonate 24, BUN 10, creatinine 0.9, glucose 83, calcium 8.3. ASSESSMENT AND PLAN: 1. Left subcapital femoral neck fracture status post closed reduction and percutaneous pinning with cannulated screws, postoperative day #2. He seems to be doing good. He does have hematuria because he tried to pull out his Black catheter, but this has been getting much better. Now the urine seems to be pinkish and not bright red blood like yesterday, I held the anticoagulation because of that. 2. Acute kidney injury, resolved. 3. Advanced dementia aware. Continue with same medications. 4. Traumatic hematuria as above as per #1. 5. History of epilepsy, aware. 6. History of severe anemia, hemoglobin and hematocrit have been stable. cc: Jorge Swartz MD
--- NOTE | 2018-11-17 14:00 | ORTHOPAEDICS PROGRESS NOTE ---
DATE: 11/17/2018 SUBJECTIVE: Ranjeet Salcido is a 78-year-old male who is postop day 2 from a left femoral neck closed reduction percutaneous pinning. He has no new complaints. He seems to be feeling better. OBJECTIVE: He is a well-developed, well-nourished male. He is alert and cooperative with exam. His leg wound is clean, dry, intact, without sign of infection. His leg is neurovascularly intact. ASSESSMENT: Stable left hip. PLAN: He will likely go to rehab later in the week. We will follow up with him next . cc: Kraig Arroyo MD
[2018-11-17] MEDS: NAMENDA XR PO SCH (17:18)
[2018-11-17] MEDS: FLOMAX PO SCH (17:18)
[2018-11-17] MEDS: ZOCOR PO SCH (17:18)
[2018-11-17] MEDS: LOPROX 0.77% TOP SCH (22:11)
[2018-11-17] MEDS: COLACE PO SCH (22:12)
[2018-11-17] MEDS: DESYREL PO SCH (22:12)
[2018-11-18] MEDS: TYLENOL PO SCH ×3 (05:55→22:32)
[2018-11-18] MEDS: PRILOSEC PO SCH (05:55)
[2018-11-18 05:57] LABS: HEMATOCRIT 29.7 % (42.0-52.0); HEMOGLOBIN 9.7 g/dL (14.0-18.0)
[2018-11-18 06:38] LABS: AGAP 9; BUN 9 mg/dL (8-22); CALCIUM 8.4 mg/dL (8.8-10.2); CHLORIDE 108 mmol/L (98-107); COSMO 287; CREATININE 0.8 mg/dL (0.7-1.2); ESTIMATED GFR > 60; GLUCOSE 96 mg/dL (70-104); POTASSIUM 3.6 mmol/L (3.5-5.1); SODIUM 145 mmol/L (136-145); TCO2 28 mmol/L (25-35)
[2018-11-18] MEDS: FERROUS SULFATE PO SCH (09:55)
[2018-11-18] MEDS: LAMICTAL PO SCH ×2 (09:55→17:15)
[2018-11-18] MEDS: PERIDEX MT SCH ×2 (09:55→22:32)
[2018-11-18] MEDS: FISH OIL CONCENTRATE PO SCH ×2 (09:55→22:32)
[2018-11-18] MEDS: NICODERM PATCH TD SCH (09:55)
[2018-11-18] MEDS: ARICEPT PO SCH (09:55)
[2018-11-18] MEDS: OXY IR PO PRN ×2 (13:12→17:16)
[2018-11-18] MEDS: HALDOL IV PRN (13:13)
[2018-11-18] MEDS ORDERED: APRESOLINE IV PRN (14:02)
--- NOTE | 2018-11-18 14:31 | PROGRESS NOTE ---
DATE: 11/18/2018 SUBJECTIVE: This patient is resting comfortably in bed. His Black catheter has been removed and he has been having clear urine, no signs of bleeding. I agree with anticoagulation now. I agree with physical therapy and we are looking for rehab center placement. I will continue with the same management. OBJECTIVE: Vital Signs: Temperature 97.6 degrees, pulse 80, respiratory rate 18, blood pressure 198/76, oxygen saturation 97% on room air. HEENT: Head normocephalic, no trauma. PERRLA. Neck: Supple. No JVD. No masses. Central trachea. Chest: Clear to auscultation. No wheezing. No rales. Abdomen: Soft, nontender, nondistended. No hepatosplenomegaly. Extremities: No edema. No clubbing. He has some pain and a little bit of swelling at the level of the left hip. The wound looks fine. I do not see any neurovascular lesion. Neurological examination: The patient is awake. He is disoriented. He has advanced dementia. He moves all 4 extremities spontaneously. LABORATORY: Hemoglobin 9.7, hematocrit 29.7. Sodium 145, potassium 3.6, chloride 108, bicarbonate 28, BUN 9, creatinine 0.8 glucose 96, calcium 8.4. ASSESSMENT AND PLAN: 1. Left subcapital femoral neck fracture status post closed reduction and percutaneous pinning with cannulated screws, postoperative day #3. He seems to be doing better. He had hematuria due to a traumatic injury trying to pull out his Black catheter, but this has resolved. Urine is clear. 2. Acute kidney injury, resolved. 3. Advanced dementia, aware. Continue with the same medication. 4. Traumatic hematuria, as per #1. 5. History of epilepsy, aware. 6. History of severe anemia. Hemoglobin and hematocrit stable, but dropped from 11.8 to 9.7 probably due to surgery and intravenous fluids which I will decrease. cc: Jorge Swartz MD
[2018-11-18] MEDS: D5 1/2 NS 1,000 ML IV SCH (16:18)
[2018-11-18] MEDS: NAMENDA XR PO SCH (17:15)
[2018-11-18] MEDS: FLOMAX PO SCH (17:15)
[2018-11-18] MEDS: ZOCOR PO SCH (17:15)
[2018-11-18] MEDS: LOPROX 0.77% TOP SCH (22:31)
[2018-11-18] MEDS: COLACE PO SCH (22:32)
[2018-11-18] MEDS: DESYREL PO SCH (22:32)
[2018-11-19] MEDS: TYLENOL PO SCH ×2 (04:02→12:30)
[2018-11-19] MEDS: LOVENOX SUBQ SCH (06:19)
[2018-11-19] MEDS: PRILOSEC PO SCH (06:19)
[2018-11-19 06:40] LABS: HEMATOCRIT 29.9 % (42.0-52.0); HEMOGLOBIN 9.8 g/dL (14.0-18.0)
[2018-11-19] MEDS: FERROUS SULFATE PO SCH (09:04)
[2018-11-19] MEDS: FISH OIL CONCENTRATE PO SCH (09:04)
[2018-11-19] MEDS: ARICEPT PO SCH (09:04)
[2018-11-19] MEDS: NICODERM PATCH TD SCH (09:05)
[2018-11-19] MEDS: LAMICTAL PO SCH (09:05)
[2018-11-19] MEDS: PERIDEX MT SCH (09:05)
--- NOTE | 2018-11-19 10:47 | DISCHARGE SUMMARY ---
ADMISSION DATE: 11/14/2018 DISCHARGE DATE: 11/19/2018 DIAGNOSES: 1. Left femoral neck fracture status post closed reduction and pinning with cannulated screws. 2. Acute kidney injury, resolved. 3. Advanced dementia. 4. History of epilepsy. 5. History of severe anemia. 6. Traumatic hematuria due to patient pulling out Black catheter, which is resolved CONSULTATION: Dr. Arroyo. DIAGNOSTICS: 1. CT of the abdomen and pelvis: Revealed left femoral neck fracture. 2. Hip and pelvis x-ray: Nondisplaced fracture of the left femoral neck. 3. Chest x-ray: Revealed negative exam. Lungs are clear. Heart size is normal. PROCEDURE: On 11/15/2018: Closed reduction and percutaneous pinning of left subcapital femoral neck fracture with 7.3 cannulated screws. HOSPITAL COURSE: Mr. Valdez presented to the emergency room after falling and having left hip pain. He was found to have a left femoral neck fracture for which he underwent closed reduction and pinning. He has done well. He did pull his Black out with the balloon inflated. He did have some transient hematuria. Thankfully, urine has cleared. His initial creatinine was 1.3; after hydration, his creatinine stayed at 0.8, 0.9. He does have a history of advanced dementia and we did continue his medications, and this has been stable. DISCHARGE VITAL SIGNS: Blood pressure is 166/62 with heart rate of 69, respirations 18, temperature is 98.5 degrees oral with room air saturations 95% to 98%. DISCHARGE PHYSICAL EXAMINATION: Cardiovascular: Regular rate and rhythm. S1 and S2 appreciated. Peripheral pulses are palpable x4 extremities. Pulmonary: Breath sounds are clear with no increased work of breathing noted. Gastrointestinal: Abdomen is soft, nontender, nondistended with bowel sounds in all 4 quadrants. Neurologic: He does have dementia. He is awake and disoriented, which is his normal state. DISCHARGE MEDICATIONS: 1. Trazodone 50 mg p.o. at bedtime. 2. Zoloft 100 mg p.o. daily. 3. Xarelto 10 mg p.o. daily. 4. Zantac 150 one p.o. b.i.d. 5. OxyIR 5 mg q. 3 hours p.r.n. pain. 6. Milk of magnesia 30 mL p.o. daily as needed. 7. Lisinopril 10 mg p.o. daily. 8. Lamotrigine 200 mg with supper. 9. Lamotrigine 100 mg p.o. daily. 10. Ferrous sulfate 325 p.o. daily. 11. Colace 100 mg p.o. at bedtime. 12. Loprox 0.77% cream as directed. 13. Norvasc 5 mg p.o. daily. 14. Flomax 0.4 mg p.o. at bedtime. 15. Simvastatin 40 mg p.o. with supper. 16. Prilosec 20 mg p.o. daily. 17. Fish oil concentrate 1 p.o. b.i.d. 18. Namenda XR 28 mg p.o. with supper. 19. Aricept 10 mg p.o. with breakfast. DISCHARGE DISPOSITION: 1. He is being discharged to rehab in stable condition with family members present. follow up Dr. Maxx Arroyo, Orthopedics, on 11/26/2018. Dr. Ly, his primary care physician, 1 to 2 weeks after discharge from rehab. TIME SPENT: This is a greater than 30 minute discharge. Dictated by MARIAA Smallwood for Jorge Swartz MD cc: MARIAA Smallwood MD Bhavna Gowda, MD [facility]adha
[2018-11-19] MEDS: D5 1/2 NS 1,000 ML IV SCH (13:31)
[2018-11-19 13:33] VITALS: BP 146/59
== END 2018-11-19 14:37 | DRG 956 ==
LOC: ED 14:32 → 4N 21:53 → SUATTDRO 21:53
PROVIDERS: ATTEND Internal Medicine